=== PATIENT | male | born 1955 | race Caucasian/White ===

== ENCOUNTER 2017-08-22 20:37 | Inpatient (IN) | payer OTHER ==
[~2017-08-22] VITALS: Ht 182.9 cm; Wt 78.8 kg
[2017-08-22 20:51] VITALS: BP 142/85; PULSE 92; RESP 26; TEMP 96.7; O2SAT 100
[2017-08-22] MEDS ORDERED: ONDANSETRON HCL 4 MG/2 ML VIAL IV PUSH ONE (21:00)
[2017-08-22] MEDS ORDERED: SODIUM CHLORIDE 0.9% FLUSH 10 ML FLUSH IV FLUSH PRN ×2 (21:00→23:00)
[2017-08-22] MEDS ORDERED: MORPHINE SULFATE 4 MG/ML INJ IV PUSH ONE (21:00)
[2017-08-22] MEDS ORDERED: ceFAZolin 2 GM PREMIX 50 ML IV ONE (21:00)
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
[2017-08-22 22:00] VITALS: BP 140/79; PULSE 101; RESP 24; O2SAT 98
[2017-08-22] MEDS ORDERED: GENTAMICIN INJ 80 MG in SODIUM CHLORIDE 0.9% INJ 100 ML IV SCH (22:00)
[2017-08-22] MEDS ORDERED: LIDOCAINE HCL 1% 30 ML VIAL INFIL ONE (22:00)
[2017-08-22 22:21] LABS: AUTOMATED NEUTROPHIL # 12.5 TH/MM3 (1.8-7.7); BASOPHIL # 0.1 TH/MM3 (0-0.2); BASOPHIL % 0.4 % (0.0-2.0); EOSINOPHIL % 0.3 % (0.0-4.0); HEMATOCRIT 32.2 % (39.0-51.0); HEMO FLAGS DIFF FINAL; LYMPH % 5.8 % (9.0-44.0); LYMPHOCYTE # 0.8 TH/MM3 (1.0-4.8); MEAN CELL VOLUME 75.8 FL (80.0-100.0); MEAN CORPUSCULAR HEMOGLOBIN 24.4 PG (27.0-34.0); MEAN CORPUSCULAR HGB CONC 32.2 % (32.0-36.0); NEUT % 87.5 % (16.0-70.0); PLATELET COUNT 339 TH/MM3 (150-450); RED BLOOD COUNT 4.25 MIL/MM3 (4.50-5.90); RED CELL DISTRIBUTION WIDTH 17.5 % (11.6-17.2); WHITE BLOOD COUNT 14.2 TH/MM3 (4.0-11.0)
[2017-08-22 22:30] LABS: APTT (PATIENT) 22.2 SEC (24.3-30.1); PROTHROMBIN TIME - PATIENT 10.2 SEC (9.8-11.6)
[2017-08-22] MEDS ORDERED: HYDROmorphone HCL PF 2 MG/ML VIAL IV PUSH ONE (22:30)
[2017-08-22 22:42] LABS: BICARBONATE 18.3 MEQ/L (21.0-32.0); POTASSIUM 3.6 MEQ/L (3.5-5.1)
[2017-08-22 23:00] VITALS: BP 138/78; PULSE 92; RESP 24; O2SAT 93
[2017-08-22] MEDS ORDERED: HYDROmorphone HCL PF 1 MG/ML VIAL IV PUSH PRN (23:00)
[2017-08-22] MEDS ORDERED: LACTULOSE SYRUP 20 GM/30 ML CUP PO PRN (23:00)
[2017-08-22] MEDS ORDERED: BISACODYL 10 MG SUPP RECTAL PRN (23:00)
[2017-08-22] MEDS ORDERED: ONDANSETRON HCL 4 MG/2 ML VIAL IVP PRN (23:00)
[2017-08-22] MEDS ORDERED: NALOXONE HCL 0.4 MG/ML AMP IV PUSH PRN (23:00)
[2017-08-22] MEDS ORDERED: MAGNESIUM HYDROXIDE SUSP 30 ML CUP PO PRN (23:00)
[2017-08-22] MEDS ORDERED: SENNOSIDES 8.6 MG TAB PO PRN (23:00)
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
[2017-08-23] VITALS: BP 132/72; PULSE 100; RESP 20; O2SAT 99
[2017-08-23] MEDS: SODIUM CHLOR 0.9% 1000 ML INJ 1,000 ML IV SCH ×3 (01:42→18:56)
[2017-08-23 01:43] VITALS: BP 151/79; PULSE 84; RESP 18; TEMP 96.4; O2SAT 95
[2017-08-23] MEDS ORDERED: LACTATED RINGER'S 1000 ML IV PRN (02:30)
[2017-08-23] MEDS ORDERED: POVIDONE IODINE 5% (ANTISEPSIS KIT) 4 APPLICATIONS EACH NARE PRN (02:30)
[2017-08-23] MEDS ORDERED: SODIUM CHLORID 0.9% 500 ML IV PRN (02:30)
[2017-08-23] MEDS ORDERED: METOPROLOL TARTRATE 25 MG TAB PO PRN (02:30)
[2017-08-23] MEDS ORDERED: CHLORHEXIDINE GLUCONATE 2 % 1 PACK (2 CLOTHS) TOPICAL PRN (02:30)
[2017-08-23 03:27] VITALS: BP 111/62; PULSE 88; RESP 18; TEMP 96.6; O2SAT 96
[2017-08-23] MEDS ORDERED: ceFAZolin 2 GM PREMIX 50 ML IV SCH (06:00)
[2017-08-23] MEDS ORDERED: GENTAMICIN SULFATE 80 MG/2 ML VIAL ONE ×2 (06:58→07:30)
[2017-08-23 07:05] LABS: AUTOMATED NEUTROPHIL # 3.9 TH/MM3 (1.8-7.7); BASOPHIL % 0.3 % (0.0-2.0); EOSINOPHIL % 0.1 % (0.0-4.0); HEMATOCRIT 27.2 % (39.0-51.0); HEMO FLAGS DIFF FINAL; LYMPH % 11.1 % (9.0-44.0); LYMPHOCYTE # 0.6 TH/MM3 (1.0-4.8); MEAN CORPUSCULAR HEMOGLOBIN 25.5 PG (27.0-34.0); MEAN CORPUSCULAR HGB CONC 33.5 % (32.0-36.0); MONO % 12.8 % (0.0-8.0); NEUT % 75.7 % (16.0-70.0); PLATELET COUNT 276 TH/MM3 (150-450); RED BLOOD COUNT 3.58 MIL/MM3 (4.50-5.90); RED CELL DISTRIBUTION WIDTH 17.5 % (11.6-17.2); WHITE BLOOD COUNT 5.1 TH/MM3 (4.0-11.0)
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
[2017-08-23 07:52] LABS: BICARBONATE 23.5 MEQ/L (21.0-32.0); POTASSIUM 4.9 MEQ/L (3.5-5.1)
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
[2017-08-23] MEDS ORDERED: diphenhydrAMINE HCL 25 MG CAP PO PRN (08:30)
[2017-08-23] MEDS ORDERED: Post-op Orders (for Pharmacy) XX ONE (08:30)
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
[2017-08-23] MEDS ORDERED: BACITRACIN TOP OINT 15 GM TUBE ONE (08:35)
[2017-08-23] MEDS: SODIUM CHLORIDE 0.9% FLUSH 10 ML FLUSH IV FLUSH SCH ×2 (09:00→20:35)
[2017-08-23] MEDS: LACTATED RINGER'S 1000 ML INJ 1,000 ML IV SCH ×2 (09:00→20:36)
[2017-08-23] MEDS: DOCUSATE SODIUM 50 MG/SENNA 8.6 MG TAB PO SCH ×2 (09:00→20:40)
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
[2017-08-23] MEDS ORDERED: *morphine SULFATE 8 MG/ML PERIprocedure ONLY ONE ×2 (09:16→09:23)
[2017-08-23] MEDS ORDERED: KETOROLAC TROMETHAMINE 30 MG/ML (IVP) VIAL ONE (09:23)
--- NOTE | 2017-08-23 09:35 | RADRPT ---
EXAM DATE/TIME: 08/23/2017 08:18 [facility] COMPARISON: KNEE RIGHT LTD (1 OR 2 VWS), August 22, 2017, 21:07. INDICATIONS : Closed reduction external fixation right knee. MEDICAL HISTORY : None. SURGICAL HISTORY : None. ENCOUNTER: Initial ACUITY: 1 day PAIN SCORE: Non-responsive. LOCATION: Right Knee CONCLUSION: Fluoroscopic images of tibial fracture. Improved alignment. Godwin Fowler MD on August 23, 2017 at 9:33 Board Certified Radiologist. This report was verified electronically.
[2017-08-23] MEDS ORDERED: DO NOT ADM ANY ANTICOAGULANT DRUGS PRN (10:00)
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
[2017-08-23 12:00] VITALS: BP 101/53; PULSE 88; RESP 18; TEMP 97.2; O2SAT 98
[2017-08-23] MEDS ORDERED: PROPOFOL 200 MG/20 ML AMP IV ONE (12:00)
[2017-08-23] MEDS ORDERED: ONDANSETRON HCL 4 MG/2 ML VIAL IV PUSH ONE (12:00)
[2017-08-23] MEDS ORDERED: LIDOCAINE HCL 1% PF 5 ML SYRINGE OTHER ONE (12:00)
[2017-08-23] MEDS ORDERED: DEXAMETHASONE SOD PHOS 4 MG/ML VIAL IV ONE (12:00)
[2017-08-23] MEDS ORDERED: MIDAZOLAM HCL 2 MG/2 ML VIAL IV ONE (12:00)
[2017-08-23] MEDS ORDERED: PHENYLEPH/NS 1000 MCG/10 ML SYR IV ONE (12:00)
[2017-08-23] MEDS: ceFAZolin 2 GM PREMIX 50 ML IV SCH ×2 (12:36→20:40)
[2017-08-23] MEDS: GENTAMICIN 80 MG PREMIX 100 ML IV SCH ×2 (12:37→19:02)
[2017-08-23] MEDS: KETOROLAC TROMETHAMINE 30 MG/ML (IVP) VIAL IVP SCH ×2 (14:00→20:40)
[2017-08-23 16:00] VITALS: BP 110/68; PULSE 99; RESP 18; TEMP 99; O2SAT 97
[2017-08-23 20:35] VITALS: BP 146/70; PULSE 103; RESP 18; TEMP 98.1; O2SAT 98
[2017-08-24] VITALS (10 sets, daily range): BP systolic 106–135; BP diastolic 54–75; PULSE 73–106; RESP 16–18; TEMP 97.3–99.3; O2SAT 95–99
[2017-08-24] MEDS: GENTAMICIN 80 MG PREMIX 100 ML IV SCH ×3 (01:19→19:35)
[2017-08-24] MEDS: ceFAZolin 2 GM PREMIX 50 ML IV SCH ×3 (02:32→20:26)
[2017-08-24] MEDS: SODIUM CHLOR 0.9% 1000 ML INJ 1,000 ML IV SCH ×2 (02:40→14:56)
[2017-08-24] MEDS: KETOROLAC TROMETHAMINE 30 MG/ML (IVP) VIAL IVP SCH ×3 (05:35→22:16)
--- NOTE | 2017-08-24 07:37 | PD.ORT.PN ---
Subjective Subjective Remarks Resting comfortably with no new complaints Objective Vitals Vital Signs Date Time Temp Pulse Resp B/P (MAP) Pulse Ox O2 Delivery O2 Flow Rate FiO2 08/24/17 04:00 98.8 102 18 116/63 (80) 97 08/24/17 00:30 98.5 102 18 135/75 (95) 97 08/23/17 20:35 98.1 103 18 146/70 (95) 98 08/23/17 16:00 99.0 99 18 110/68 (82) 97 08/23/17 12:00 97.2 88 18 101/53 (69) 98 08/23/17 09:45 98.4 81 15 135/79 (97) 100 Nasal Cannula 2 08/23/17 09:45 80 15 131/81 (98) 100 Nasal Cannula 2 08/23/17 09:30 71 15 155/70 (98) 100 Nasal Cannula 2 08/23/17 09:15 79 15 130/71 (90) 100 Nasal Cannula 2 08/23/17 08:59 98.1 72 15 137/64 (88) 95 Nasal Cannula 2 I/O 08/23/17 08/23/17 08/23/17 08/24/17 08/24/17 08/24/17 07:00 15:00 23:00 07:00 15:00 23:00 Intake Total 100 ml 1780 ml 480 ml 530 ml Output Total 700 ml Balance 100 ml 1080 ml 480 ml 530 ml Intake Oral 0 ml 480 ml 480 ml 480 ml IV Total 100 ml 100 ml 50 ml Other 1200 ml Output Urine Total 650 ml Estimated Blood Loss 50 ml # Voids 1 2 3 # Bowel Movements 0 0 0 0 Result Diagram: 08/23/1762708/23/17627 Imaging Last 24 hours Impressions Tibia/Fibula X-Ray 08/22/172047 Signed Impressions: Service Date/Time: Tuesday, August 22, 2017 21:08 - CONCLUSION: Severely comminuted fracture of the proximal tibia and fracturing of the distal femur. Raúl May MD Knee X-Ray 08/22/172047 Signed Impressions: Service Date/Time: Tuesday, August 22, 2017 21:07 - CONCLUSION: Severely comminuted distal tibial fractures and fractures of the distal femur at the condyles. This possible fracture of the proximal fibula. There is air in the soft tissues and in the knee joint space. Raúl May MD Femur X-Ray 08/22/172047 Signed Impressions: Service Date/Time: Tuesday, August 22, 2017 21:04 - CONCLUSION: Fracturing at the femoral condyles and tibial plateau. Raúl May MD Objective Remarks Right lower extremity: External fixation in place. Clean dry dressings intact. Swelling a +2. Intact sensation distally with active dorsiflexion plantar flexion foot Assessment & Plan Assessment and Plan Right open distal femur and tibia plateau status post irrigation debridement with wound closure and external fixation POD 1 Nonweightbearing right lower extremity Daily dressing changes beginning POD 2 with Xeroform 4 x 4's ABDs and light Beau wrap Pin care twice a day Elevation and ice Plan for further surgery with swelling and traumatic laceration has improved Lovenox Incentive spirometry Bayron Sung Jr. Aug 24, 2017 07:37
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
[2017-08-24] MEDS: ENOXAPARIN SODIUM 40 MG/0.4 ML SYRINGE SQ SCH (08:57)
[2017-08-24] MEDS: DOCUSATE SODIUM 50 MG/SENNA 8.6 MG TAB PO SCH ×2 (08:57→20:26)
[2017-08-24] MEDS: SODIUM CHLORIDE 0.9% FLUSH 10 ML FLUSH IV FLUSH SCH ×2 (09:00→20:43)
[2017-08-24 10:40] LABS: REVIEW FLAG FINAL
[2017-08-24 10:44] LABS: HEMATOCRIT 19.6 % (39.0-51.0)
[2017-08-24] MEDS ORDERED: FUROSEMIDE 20 MG/2 ML VIAL IV PUSH SCH (16:15)
[2017-08-24] MEDS ORDERED: SODIUM CHLOR 0.9% 250 ML INJ 250 ML IV ONE (16:15)
[2017-08-24] MEDS: ACETAMINOPHEN 325 MG TAB PO PRN (22:39)
[2017-08-24] MEDS: diphenhydrAMINE HCL 25 MG CAP PO PRN (22:39)
[2017-08-25] VITALS (8 sets, daily range): BP systolic 114–173; BP diastolic 66–86; PULSE 59–97; RESP 16–18; TEMP 96–97.9; O2SAT 95–100
[2017-08-25] MEDS: GENTAMICIN 80 MG PREMIX 100 ML IV SCH (03:01)
[2017-08-25] MEDS: ceFAZolin 2 GM PREMIX 50 ML IV SCH ×3 (03:01→21:26)
[2017-08-25] MEDS: ACETAMINOPHEN 325 MG TAB PO PRN (04:14)
[2017-08-25] MEDS: diphenhydrAMINE HCL 25 MG CAP PO PRN (04:14)
[2017-08-25] MEDS: KETOROLAC TROMETHAMINE 30 MG/ML (IVP) VIAL IVP SCH (04:15)
--- NOTE | 2017-08-25 08:43 | PD.ORT.PN ---
Subjective Subjective Remarks Resting comfortably with no new complaints Objective Vitals Vital Signs Date Time Temp Pulse Resp B/P (MAP) Pulse Ox O2 Delivery O2 Flow Rate FiO2 08/25/17 05:21 97.9 68 16 125/70 99 08/25/17 05:02 97.9 67 18 120/72 08/25/17 04:56 97.9 77 18 120/72 (88) 95 08/25/17 02:42 97.9 76 16 114/68 99 08/24/17 23:44 99.3 73 18 115/67 99 08/24/17 23:25 99.0 76 18 116/64 99 08/24/17 23:05 99.0 76 18 116/64 (81) 99 08/24/17 22:21 99.0 89 18 116/63 (80) 99 08/24/17 20:39 97.3 86 17 109/58 (75) 95 08/24/17 16:00 97.6 87 16 119/62 (81) 96 08/24/17 12:00 98.0 106 16 110/54 (72) 97 I/O 08/24/17 08/24/17 08/24/17 08/25/17 08/25/17 08/25/17 07:00 15:00 23:00 07:00 15:00 23:00 Intake Total 530 ml 1080 ml 1950 ml 410 ml Output Total 1825 ml Balance 530 ml 1080 ml 125 ml 410 ml Intake Oral 480 ml 1080 ml 1440 ml IV Total 50 ml Packed Cells 400 ml 400 ml Blood Product IV Normal Saline Flush 110 ml 10 ml Output Urine Total 1825 ml # Voids 3 6 # Bowel Movements 0 0 0 Result Diagram: 08/24/17 0945 08/23/17 0628 Imaging Last 24 hours Impressions Tibia/Fibula X-Ray 08/22/172047 Signed Impressions: Service Date/Time: Tuesday, August 22, 2017 21:08 - CONCLUSION: Severely comminuted fracture of the proximal tibia and fracturing of the distal femur. Raúl May MD Knee X-Ray 08/22/172047 Signed Impressions: Service Date/Time: Tuesday, August 22, 2017 21:07 - CONCLUSION: Severely comminuted distal tibial fractures and fractures of the distal femur at the condyles. This possible fracture of the proximal fibula. There is air in the soft tissues and in the knee joint space. Raúl May MD Femur X-Ray 08/22/172047 Signed Impressions: Service Date/Time: Tuesday, August 22, 2017 21:04 - CONCLUSION: Fracturing at the femoral condyles and tibial plateau. Raúl May MD Objective Remarks Right lower extremity: External fixation in place. Clean dry dressings intact. Dressings taken down and traumatic laceration well approximated and healing well. No necrosis noted. Swelling a +2. Intact sensation distally with active dorsiflexion plantar flexion foot Assessment & Plan Assessment and Plan Right open distal femur and tibia plateau status post irrigation debridement with wound closure and external fixation POD 2 Nonweightbearing right lower extremity Daily dressing changes beginning POD 2 with bacitracin and Adaptic, 4 x 4's ABDs and light Beau wrap Pin care twice a day Elevation and ice Plan for further surgery with swelling and traumatic laceration has improved Lovenox Incentive spirometry Bayron Sung Jr. Aug 25, 2017 08:43
[2017-08-25] MEDS: DOCUSATE SODIUM 50 MG/SENNA 8.6 MG TAB PO SCH ×2 (08:47→21:26)
[2017-08-25] MEDS: SODIUM CHLORIDE 0.9% FLUSH 10 ML FLUSH IV FLUSH SCH ×2 (08:48→21:27)
[2017-08-25] MEDS: ENOXAPARIN SODIUM 40 MG/0.4 ML SYRINGE SQ SCH (08:48)
[2017-08-25] MEDS: ACETAMINOPHEN/HYDROcodone 325 MG/10 MG TAB PO PRN ×2 (08:48→12:43)
[2017-08-25 09:35] LABS: HEMATOCRIT 22.5 % (39.0-51.0)
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
[2017-08-25] MEDS: SODIUM CHLOR 0.9% 1000 ML INJ 1,000 ML IV SCH (14:56)
[2017-08-26] VITALS: BP 137/77; PULSE 93; RESP 20; TEMP 98; O2SAT 98
[2017-08-26 02:47] LABS: HEMATOCRIT 23.5 % (39.0-51.0)
[2017-08-26 04:00] VITALS: BP 140/84; PULSE 87; RESP 20; TEMP 97.2; O2SAT 97
[2017-08-26] MEDS: ceFAZolin 2 GM PREMIX 50 ML IV SCH (04:33)
--- NOTE | 2017-08-26 07:36 | PD.ORT.PN ---
Subjective Subjective Remarks POD 3 s/p application of exfix right distal femur and proximal tibia fxs doing well. no changes. Objective Vitals Vital Signs Date Time Temp Pulse Resp B/P (MAP) Pulse Ox O2 Delivery O2 Flow Rate FiO2 08/26/17 04:00 97.2 87 20 140/84 (102) 97 08/26/17 00:00 98.0 93 20 137/77 (97) 98 08/25/17 20:15 97.4 97 17 122/80 (94) 100 08/25/17 16:00 96.6 78 18 173/86 (115) 99 08/25/17 12:00 96.0 88 18 130/66 (87) 100 08/25/17 08:00 96.8 59 18 114/72 (86) 96 I/O 08/25/17 08/25/17 08/25/17 08/26/17 08/26/17 08/26/17 06:59 14:59 22:59 06:59 14:59 22:59 Intake Total 1950 ml 890 ml 530 ml 2290 ml Output Total 1825 ml 700 ml 1500 ml 5000 ml Balance 125 ml 190 ml -970 ml -2710 ml Intake Oral 1440 ml 480 ml 480 ml 2240 ml IV Total 50 ml 50 ml Packed Cells 400 ml 400 ml Blood Product IV Normal Saline Flush 110 ml 10 ml Output Urine Total 1825 ml 700 ml 1500 ml 5000 ml # Bowel Movements 0 0 0 Result Diagram: 08/26/17 0232 08/23/17 0628 Imaging Last 24 hours Impressions Tibia/Fibula X-Ray 08/22/172047 Signed Impressions: Service Date/Time: Tuesday, August 22, 2017 21:08 - CONCLUSION: Severely comminuted fracture of the proximal tibia and fracturing of the distal femur. Raúl May MD Knee X-Ray 08/22/172047 Signed Impressions: Service Date/Time: Tuesday, August 22, 2017 21:07 - CONCLUSION: Severely comminuted distal tibial fractures and fractures of the distal femur at the condyles. This possible fracture of the proximal fibula. There is air in the soft tissues and in the knee joint space. Raúl May MD Femur X-Ray 08/22/172047 Signed Impressions: Service Date/Time: Tuesday, August 22, 2017 21:04 - CONCLUSION: Fracturing at the femoral condyles and tibial plateau. Raúl May MD Objective Remarks Right lower extremity: External fixation in place. Clean dry dressings intact. Dressings taken down and traumatic laceration well approximated and healing well. No necrosis noted. Swelling a +2. Intact sensation distally with active dorsiflexion plantar flexion foot Assessment & Plan Assessment and Plan 1) Right open distal femur and tibia plateau status post irrigation debridement with wound closure and external fixation POD 3 Nonweightbearing right lower extremity Daily dressing changes beginning with bacitracin and Adaptic, 4 x 4's ABDs and light Beau wrap Pin care twice a day Elevation and ice Plan for further surgery with swelling and traumatic laceration has improved Lovenox Incentive spirometry do not anticipate surgery until next week at earliest Samson Verma/First [facility] CONNELL Aug 26, 2017 07:36
[2017-08-26 08:00] VITALS: BP 130/88; PULSE 83; RESP 16; TEMP 97.6; O2SAT 98
[2017-08-26] MEDS: ENOXAPARIN SODIUM 40 MG/0.4 ML SYRINGE SQ SCH (08:40)
[2017-08-26] MEDS: SODIUM CHLORIDE 0.9% FLUSH 10 ML FLUSH IV FLUSH SCH ×2 (08:40→22:28)
[2017-08-26] MEDS: DOCUSATE SODIUM 50 MG/SENNA 8.6 MG TAB PO SCH ×2 (08:40→21:00)
[2017-08-26] MEDS: BACITRACIN TOP OINT 15 GM TUBE TOPICAL SCH (09:00)
[2017-08-26 12:00] VITALS: BP 129/69; PULSE 93; RESP 16; TEMP 97.4; O2SAT 95
[2017-08-26] MEDS: IRON SUCROSE INJ 100 MG in SODIUM CHLORIDE 0.9% INJ 100 ML IV SCH (12:00)
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
[2017-08-26 16:00] VITALS: BP 157/79; PULSE 70; RESP 16; TEMP 97.8; O2SAT 98
[2017-08-26] MEDS: ACETAMINOPHEN/HYDROcodone 325 MG/10 MG TAB PO PRN (16:37)
[2017-08-26] MEDS: SODIUM CHLOR 0.9% 1000 ML INJ 1,000 ML IV SCH (16:37)
[2017-08-26 21:37] VITALS: BP 128/72; PULSE 91; RESP 18; TEMP 98.7; O2SAT 98
[2017-08-27] VITALS: BP 136/75; PULSE 82; RESP 20; TEMP 97; O2SAT 96
[2017-08-27] MEDS: DOCUSATE SODIUM 50 MG/SENNA 8.6 MG TAB PO SCH ×2 (07:42→23:07)
[2017-08-27] MEDS: ENOXAPARIN SODIUM 40 MG/0.4 ML SYRINGE SQ SCH (07:42)
[2017-08-27 08:00] VITALS: BP 142/83; PULSE 74; RESP 16; TEMP 96.4; O2SAT 99
[2017-08-27] MEDS: SODIUM CHLORIDE 0.9% FLUSH 10 ML FLUSH IV FLUSH SCH ×2 (09:00→23:07)
[2017-08-27] MEDS: BACITRACIN TOP OINT 15 GM TUBE TOPICAL SCH (09:00)
--- NOTE | 2017-08-27 09:17 | PD.ORT.PN ---
Subjective Subjective Remarks Resting comfortably with no new complaints Objective Vitals Vital Signs Date Time Temp Pulse Resp B/P (MAP) Pulse Ox O2 Delivery O2 Flow Rate FiO2 08/27/17 00:00 97.0 82 20 136/75 (95) 96 08/26/17 21:37 98.7 91 18 128/72 (90) 98 08/26/17 19:18 Room Air 08/26/17 16:00 97.8 70 16 157/79 (105) 98 08/26/17 12:00 97.4 93 16 129/69 (89) 95 I/O 08/26/17 08/26/17 08/26/17 08/27/17 08/27/17 08/27/17 07:00 15:00 23:00 07:00 15:00 23:00 Intake Total 2290 ml 940 ml 1000 ml Output Total 5000 ml 3000 ml 2000 ml Balance -2710 ml -2060 ml -1000 ml Intake Oral 2240 ml 940 ml 1000 ml IV Total 50 ml Output Urine Total 5000 ml 3000 ml 2000 ml # Voids 2 # Bowel Movements 0 0 0 Result Diagram: 08/27/17 0634 08/23/17 0628 Imaging Last 24 hours Impressions Tibia/Fibula X-Ray 08/22/172047 Signed Impressions: Service Date/Time: Tuesday, August 22, 2017 21:08 - CONCLUSION: Severely comminuted fracture of the proximal tibia and fracturing of the distal femur. Raúl May MD Knee X-Ray 08/22/172047 Signed Impressions: Service Date/Time: Tuesday, August 22, 2017 21:07 - CONCLUSION: Severely comminuted distal tibial fractures and fractures of the distal femur at the condyles. This possible fracture of the proximal fibula. There is air in the soft tissues and in the knee joint space. Raúl May MD Femur X-Ray 08/22/172047 Signed Impressions: Service Date/Time: Tuesday, August 22, 2017 21:04 - CONCLUSION: Fracturing at the femoral condyles and tibial plateau. Raúl May MD Objective Remarks Right lower extremity: External fixation in place. Clean dry dressings intact. Dressings taken down and traumatic laceration well approximated and healing well. No necrosis noted. Swelling a +2. Intact sensation distally with active dorsiflexion plantar flexion foot Assessment & Plan Assessment and Plan 1) Right open distal femur and tibia plateau status post irrigation debridement with wound closure and external fixation POD 4 Nonweightbearing right lower extremity Daily dressing changes beginning with bacitracin and Adaptic, 4 x 4's ABDs and light Beau wrap Pin care twice a day Elevation and ice Plan for further surgery with swelling and traumatic laceration has improved - next week Lovenox Incentive spirometry Bayron Sung Jr. Aug 27, 2017 09:17
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
[2017-08-27 12:00] VITALS: BP 138/85; PULSE 93; RESP 16; TEMP 97; O2SAT 97
[2017-08-27] MEDS: IRON SUCROSE INJ 100 MG in SODIUM CHLORIDE 0.9% INJ 100 ML IV SCH (13:08)
[2017-08-27] MEDS: SODIUM CHLOR 0.9% 1000 ML INJ 1,000 ML IV SCH (14:56)
[2017-08-27 16:00] VITALS: BP 133/79; PULSE 72; RESP 16; TEMP 97.1; O2SAT 98
[2017-08-27] MEDS: ACETAMINOPHEN/HYDROcodone 325 MG/10 MG TAB PO PRN (16:48)
[2017-08-27 20:00] VITALS: BP 154/88; PULSE 76; RESP 18; TEMP 97.9; O2SAT 99
[2017-08-28] VITALS: BP 139/82; PULSE 79; RESP 17; TEMP 96.3; O2SAT 98
--- NOTE | 2017-08-28 07:41 | PD.ORT.PN ---
Subjective Subjective Remarks Resting comfortably with no new complaints Objective Vitals Vital Signs Date Time Temp Pulse Resp B/P (MAP) Pulse Ox O2 Delivery O2 Flow Rate FiO2 08/28/17 00:00 96.3 79 17 139/82 (101) 98 08/27/17 20:00 97.9 76 18 154/88 (110) 99 08/27/17 19:07 Room Air 08/27/17 16:00 97.1 72 16 133/79 (97) 98 08/27/17 12:00 97.0 93 16 138/85 (102) 97 08/27/17 08:00 96.4 74 16 142/83 (102) 99 I/O 08/27/17 08/27/17 08/27/17 08/28/17 08/28/17 08/28/17 07:00 15:00 23:00 07:00 15:00 23:00 Intake Total 1000 ml 1660 ml 720 ml Output Total 2000 ml 1500 ml 1100 ml Balance -1000 ml 160 ml -380 ml Intake Oral 1000 ml 1660 ml 720 ml Output Urine Total 2000 ml 1500 ml 1100 ml # Voids 4 # Bowel Movements 0 Result Diagram: 08/27/17 0634 Imaging Last 24 hours Impressions Tibia/Fibula X-Ray 08/22/172047 Signed Impressions: Service Date/Time: Tuesday, August 22, 2017 21:08 - CONCLUSION: Severely comminuted fracture of the proximal tibia and fracturing of the distal femur. Raúl May MD Knee X-Ray 08/22/172047 Signed Impressions: Service Date/Time: Tuesday, August 22, 2017 21:07 - CONCLUSION: Severely comminuted distal tibial fractures and fractures of the distal femur at the condyles. This possible fracture of the proximal fibula. There is air in the soft tissues and in the knee joint space. Raúl May MD Femur X-Ray 08/22/172047 Signed Impressions: Service Date/Time: Tuesday, August 22, 2017 21:04 - CONCLUSION: Fracturing at the femoral condyles and tibial plateau. Raúl May MD Objective Remarks Right lower extremity: External fixation in place. Clean dry dressings intact. Dressings taken down and traumatic laceration well approximated and healing well. No necrosis noted. Swelling a +2. Intact sensation distally with active dorsiflexion plantar flexion foot Assessment & Plan Assessment and Plan 1) Right open distal femur and tibia plateau status post irrigation debridement with wound closure and external fixation POD 5 Nonweightbearing right lower extremity Daily dressing changes beginning with bacitracin and Adaptic, 4 x 4's ABDs and light Beau wrap Pin care twice a day Elevation and ice Keep leg straight to avoid pressure of his knee touching the external fixators Plan for further surgery with swelling and traumatic laceration has improved - next week Lovenox Incentive spirometry Bayron Sung Jr. Aug 28, 2017 07:41
[2017-08-28 08:00] VITALS: BP 126/69; PULSE 76; RESP 18; TEMP 96.8; O2SAT 99
[2017-08-28] MEDS: ENOXAPARIN SODIUM 40 MG/0.4 ML SYRINGE SQ SCH (09:00)
[2017-08-28] MEDS: SODIUM CHLORIDE 0.9% FLUSH 10 ML FLUSH IV FLUSH SCH ×2 (09:00→22:24)
[2017-08-28] MEDS: DOCUSATE SODIUM 50 MG/SENNA 8.6 MG TAB PO SCH ×2 (09:00→21:00)
[2017-08-28] MEDS: BACITRACIN TOP OINT 15 GM TUBE TOPICAL SCH (09:05)
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
[2017-08-28 12:00] VITALS: BP 116/65; PULSE 85; RESP 18; TEMP 95.9; O2SAT 97
[2017-08-28] MEDS: IRON SUCROSE INJ 100 MG in SODIUM CHLORIDE 0.9% INJ 100 ML IV SCH (12:37)
[2017-08-28] MEDS: SODIUM CHLOR 0.9% 1000 ML INJ 1,000 ML IV SCH (14:56)
[2017-08-28 16:00] VITALS: BP 131/75; PULSE 76; RESP 18; TEMP 97.3; O2SAT 100
[2017-08-28 20:40] VITALS: BP 124/72; PULSE 89; RESP 18; TEMP 97.8; O2SAT 97
[2017-08-29 00:12] VITALS: BP 103/67; PULSE 90; RESP 18; TEMP 98.4; O2SAT 97
[2017-08-29 08:00] VITALS: BP 131/74; PULSE 85; RESP 18; TEMP 96.6; O2SAT 98
[2017-08-29] MEDS: DOCUSATE SODIUM 50 MG/SENNA 8.6 MG TAB PO SCH ×2 (09:00→19:56)
[2017-08-29] MEDS: ENOXAPARIN SODIUM 40 MG/0.4 ML SYRINGE SQ SCH (09:32)
[2017-08-29] MEDS: SODIUM CHLORIDE 0.9% FLUSH 10 ML FLUSH IV FLUSH SCH ×2 (09:32→19:56)
[2017-08-29] MEDS: BACITRACIN TOP OINT 15 GM TUBE TOPICAL SCH (09:33)
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
[2017-08-29 11:57] VITALS: BP 123/70; PULSE 93; RESP 18; TEMP 97.8; O2SAT 98
[2017-08-29] MEDS: SODIUM CHLOR 0.9% 1000 ML INJ 1,000 ML IV SCH (14:56)
[2017-08-29 16:00] VITALS: BP 129/73; PULSE 80; RESP 18; TEMP 96.1; O2SAT 99
[2017-08-29 20:50] VITALS: BP 142/75; PULSE 84; RESP 18; TEMP 97.2; O2SAT 100
[2017-08-30 00:07] VITALS: BP 123/75; PULSE 80; RESP 18; TEMP 97; O2SAT 100
[2017-08-30 05:36] LABS: AUTOMATED NEUTROPHIL # 5.6 TH/MM3 (1.8-7.7); BASOPHIL # 0.1 TH/MM3 (0-0.2); BASOPHIL % 0.9 % (0.0-2.0); EOSINOPHIL # 0.3 TH/MM3 (0-0.4); EOSINOPHIL % 3.8 % (0.0-4.0); HEMATOCRIT 26.1 % (39.0-51.0); HEMO FLAGS DIFF FINAL; LYMPH % 15.5 % (9.0-44.0); LYMPHOCYTE # 1.3 TH/MM3 (1.0-4.8); MEAN CORPUSCULAR HEMOGLOBIN 27.2 PG (27.0-34.0); MEAN CORPUSCULAR HGB CONC 33.6 % (32.0-36.0); MONO % 12.1 % (0.0-8.0); NEUT % 67.7 % (16.0-70.0); PLATELET COUNT 390 TH/MM3 (150-450); RED BLOOD COUNT 3.22 MIL/MM3 (4.50-5.90); RED CELL DISTRIBUTION WIDTH 19.5 % (11.6-17.2); WHITE BLOOD COUNT 8.3 TH/MM3 (4.0-11.0)
[2017-08-30 06:04] LABS: BICARBONATE 21.6 MEQ/L (21.0-32.0); POTASSIUM 4.1 MEQ/L (3.5-5.1)
--- NOTE | 2017-08-30 06:49 | PD.ORT.PN ---
Subjective Subjective Remarks Resting comfortably with no new complaints Objective Vitals Vital Signs Date Time Temp Pulse Resp B/P (MAP) Pulse Ox O2 Delivery O2 Flow Rate FiO2 08/30/17 00:07 97.0 80 18 123/75 (91) 100 08/29/17 20:50 97.2 84 18 142/75 (97) 100 08/29/17 20:00 Room Air 08/29/17 16:00 96.1 80 18 129/73 (91) 99 08/29/17 11:57 97.8 93 18 123/70 (87) 98 08/29/17 08:00 96.6 85 18 131/74 (93) 98 I/O 08/29/17 08/29/17 08/29/17 08/30/17 08/30/17 08/30/17 07:00 15:00 23:00 07:00 15:00 23:00 Intake Total 480 ml 960 ml 480 ml Output Total 1900 ml 1000 ml Balance -1420 ml 960 ml -520 ml Intake Oral 480 ml 960 ml 480 ml Output Urine Total 1900 ml 1000 ml # Voids 6 # Bowel Movements 0 0 0 Result Diagram: 08/30/17 0434 08/30/17 0434 Imaging Last 24 hours Impressions Tibia/Fibula X-Ray 08/22/172047 Signed Impressions: Service Date/Time: Tuesday, August 22, 2017 21:08 - CONCLUSION: Severely comminuted fracture of the proximal tibia and fracturing of the distal femur. Raúl May MD Knee X-Ray 08/22/172047 Signed Impressions: Service Date/Time: Tuesday, August 22, 2017 21:07 - CONCLUSION: Severely comminuted distal tibial fractures and fractures of the distal femur at the condyles. This possible fracture of the proximal fibula. There is air in the soft tissues and in the knee joint space. Raúl May MD Femur X-Ray [id number]/22/172047 Signed Impressions: Service Date/Time: Tuesday, August 22, 2017 21:04 - CONCLUSION: Fracturing at the femoral condyles and tibial plateau. Raúl May MD Objective Remarks Right lower extremity: External fixation in place. Clean dry dressings intact. Dressings taken down and traumatic laceration well approximated and healing with some necrosis over the lateral incision line and also medially distally to the laceration over the traumatized skin. No necrosis noted. Swelling a +2. Intact sensation distally with active dorsiflexion plantar flexion foot Assessment & Plan Assessment and Plan 1) Right open distal femur and tibia plateau status post irrigation debridement with wound closure and external fixation POD 6 Nonweightbearing right lower extremity Daily dressing changes beginning with bacitracin and Adaptic, 4 x 4's ABDs and light Beau wrap Pin care twice a day Elevation and ice Keep leg straight to avoid pressure of his knee touching the external fixators Nothing by mouth after midnight Hold Lovenox Incentive spirometry Bayron Sung Jr. Aug 30, 2017 06:48
[2017-08-30 08:00] VITALS: BP 133/77; PULSE 72; RESP 18; TEMP 98.4; O2SAT 78
[2017-08-30] MEDS: SODIUM CHLORIDE 0.9% FLUSH 10 ML FLUSH IV FLUSH SCH ×2 (09:00→21:41)
[2017-08-30] MEDS: BACITRACIN TOP OINT 15 GM TUBE TOPICAL SCH (09:00)
[2017-08-30] MEDS: ENOXAPARIN SODIUM 40 MG/0.4 ML SYRINGE SQ SCH (09:46)
[2017-08-30] MEDS: DOCUSATE SODIUM 50 MG/SENNA 8.6 MG TAB PO SCH ×2 (09:46→21:00)
[2017-08-30 12:00] VITALS: BP 130/75; PULSE 96; RESP 16; TEMP 97.1; O2SAT 98
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
[2017-08-30] MEDS: SODIUM CHLOR 0.9% 1000 ML INJ 1,000 ML IV SCH (14:56)
[2017-08-30 16:00] VITALS: BP 142/78; PULSE 94; RESP 16; TEMP 96.4; O2SAT 100
[2017-08-30 20:00] VITALS: BP 131/69; PULSE 86; RESP 20; TEMP 98; O2SAT 99
[2017-08-31] VITALS: BP 133/68; PULSE 89; RESP 22; TEMP 98; O2SAT 97
[2017-08-31] MEDS ORDERED: LACTATED RINGER'S 1000 ML IV PRN (00:30)
[2017-08-31] MEDS ORDERED: POVIDONE IODINE 5% (ANTISEPSIS KIT) 4 APPLICATIONS EACH NARE PRN (00:30)
[2017-08-31] MEDS ORDERED: CHLORHEXIDINE GLUCONATE 2 % 1 PACK (2 CLOTHS) TOPICAL PRN (00:30)
[2017-08-31 04:00] VITALS: BP 144/79; PULSE 85; RESP 20; TEMP 97.7; O2SAT 97
--- NOTE | 2017-08-31 06:34 | PD.ORT.PN ---
Subjective Subjective Remarks s/p application of exfix right distal femur and proximal tibia fxs doing well. no changes. Objective Vitals Vital Signs Date Time Temp Pulse Resp B/P (MAP) Pulse Ox O2 Delivery O2 Flow Rate FiO2 08/31/17 04:00 97.7 85 20 144/79 (100) 97 08/31/17 00:00 98.0 89 22 133/68 (89) 97 08/30/17 20:00 98.0 86 20 131/69 (89) 99 08/30/17 16:00 96.4 94 16 142/78 (99) 100 08/30/17 12:00 97.1 96 16 130/75 (93) 98 08/30/17 09:40 Room Air 08/30/17 08:00 98.4 72 18 133/77 (95) 78 I/O 08/30/17 08/30/17 08/30/17 08/31/17 08/31/17 08/31/17 07:00 15:00 23:00 07:00 15:00 23:00 Intake Total 960 ml 720 ml Output Total 2400 ml 2575 ml Balance -1440 ml 720 ml -2575 ml Intake Oral 960 ml 720 ml Output Urine Total 2400 ml 2575 ml # Voids 5 # Bowel Movements 0 0 Result Diagram: 08/30/17 0434 08/30/17 0434 Imaging Last 24 hours Impressions Tibia/Fibula X-Ray 08/22/172047 Signed Impressions: Service Date/Time: Tuesday, August 22, 2017 21:08 - CONCLUSION: Severely comminuted fracture of the proximal tibia and fracturing of the distal femur. Raúl May MD Knee X-Ray 08/22/172047 Signed Impressions: Service Date/Time: Tuesday, August 22, 2017 21:07 - CONCLUSION: Severely comminuted distal tibial fractures and fractures of the distal femur at the condyles. This possible fracture of the proximal fibula. There is air in the soft tissues and in the knee joint space. Raúl May MD Femur X-Ray 08/22/172047 Signed Impressions: Service Date/Time: Tuesday, August 22, 2017 21:04 - CONCLUSION: Fracturing at the femoral condyles and tibial plateau. Raúl May MD Objective Remarks Right lower extremity: External fixation in place. Clean dry dressings intact. Dressings taken down and traumatic laceration well approximated and healing with some necrosis over the lateral incision line and also medially distally to the laceration over the traumatized skin. No necrosis noted. Swelling a +2. Intact sensation distally with active dorsiflexion plantar flexion foot Assessment & Plan Assessment and Plan 1) Right open distal femur and tibia plateau status post irrigation debridement with wound closure and external fixation POD 7 Nonweightbearing right lower extremity Daily dressing changes beginning with bacitracin and Adaptic, 4 x 4's ABDs and light Beau wrap Pin care twice a day Elevation and ice Keep leg straight to avoid pressure of his knee touching the external fixators OR today for I&D and revision of exfix Samson Verma/[facility] PA Aug 31, 2017 06:34
[2017-08-31 08:00] VITALS: BP 123/69; PULSE 79; RESP 18; TEMP 96.6; O2SAT 98
[2017-08-31 08:33] LABS: APTT (PATIENT) 23.4 SEC (24.3-30.1); INTERNATIONAL NORMALIZED RATIO 0.9 RATIO; PROTHROMBIN TIME - PATIENT 9.3 SEC (9.8-11.6)
[2017-08-31 08:40] LABS: AUTOMATED NEUTROPHIL # 5.5 TH/MM3 (1.8-7.7); BASOPHIL # 0.1 TH/MM3 (0-0.2); BASOPHIL % 0.9 % (0.0-2.0); EOSINOPHIL # 0.3 TH/MM3 (0-0.4); EOSINOPHIL % 3.6 % (0.0-4.0); HEMATOCRIT 27.2 % (39.0-51.0); HEMO FLAGS DIFF FINAL; LYMPH % 15.4 % (9.0-44.0); LYMPHOCYTE # 1.2 TH/MM3 (1.0-4.8); MEAN CELL VOLUME 80.5 FL (80.0-100.0); MEAN CORPUSCULAR HEMOGLOBIN 26.8 PG (27.0-34.0); MEAN CORPUSCULAR HGB CONC 33.3 % (32.0-36.0); NEUT % 69.1 % (16.0-70.0); PLATELET COUNT 440 TH/MM3 (150-450); RED BLOOD COUNT 3.38 MIL/MM3 (4.50-5.90); RED CELL DISTRIBUTION WIDTH 19.7 % (11.6-17.2)
[2017-08-31] MEDS: DOCUSATE SODIUM 50 MG/SENNA 8.6 MG TAB PO SCH ×2 (08:44→21:57)
[2017-08-31] MEDS: SODIUM CHLORIDE 0.9% FLUSH 10 ML FLUSH IV FLUSH SCH ×2 (08:44→21:58)
[2017-08-31] MEDS: BACITRACIN TOP OINT 15 GM TUBE TOPICAL SCH (08:45)
[2017-08-31 08:53] LABS: ANION GAP 9 MEQ/L (5-15); AST (GOT) 23 U/L (15-37); BICARBONATE 23.9 MEQ/L (21.0-32.0); BLOOD UREA NITROGEN 10 MG/DL (7-18); CHLORIDE 99 MEQ/L (98-107); GLOMERULAR FILTRATION RATE 116 ML/MIN (>89); MAGNESIUM 2.3 MG/DL (1.5-2.5); SODIUM (NA) 132 MEQ/L (136-145)
[2017-08-31 08:55] LABS: ALT (GPT) 32 U/L (12-78)
[2017-08-31 09:04] LABS: ALKALINE PHOSPHATASE 65 U/L (45-117); FREE T4 1.03 NG/DL (0.76-1.46); TOTAL BILIRUBIN ADULT 0.5 MG/DL (0.2-1.0)
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
[2017-08-31 12:00] VITALS: BP 125/74; PULSE 81; RESP 16; TEMP 96.5; O2SAT 99
[2017-08-31] MEDS ORDERED: NEOSTIGMINE 5 MG/5 ML SYRINGE IV PUSH ONE (12:00)
[2017-08-31] MEDS ORDERED: ONDANSETRON HCL 4 MG/2 ML VIAL IV ONE (12:00)
[2017-08-31] MEDS ORDERED: DEXAMETHASONE SOD PHOS 4 MG/ML VIAL IV ONE (12:00)
[2017-08-31] MEDS ORDERED: GLYCOPYRROLATE 1 MG/5 ML SYRINGE IV PUSH ONE (12:00)
[2017-08-31] MEDS ORDERED: PROPOFOL 200 MG/20 ML AMP IV ONE (12:00)
[2017-08-31] MEDS ORDERED: PHENYLEPH/NS 1000 MCG/10 ML SYR IV ONE (12:00)
[2017-08-31] MEDS ORDERED: LIDOCAINE HCL 1% PF 5 ML SYRINGE OTHER ONE (12:00)
[2017-08-31] MEDS ORDERED: ROCURONIUM INJ 50 MG/5 ML SYRINGE IV PUSH ONE (12:00)
[2017-08-31] MEDS: ACETAMINOPHEN 325 MG TAB PO PRN (13:06)
[2017-08-31] MEDS: SODIUM CHLORIDE 1 GRAM TAB PO SCH ×2 (13:06→18:41)
--- NOTE | 2017-08-31 13:16 | EKG ---
Date Performed: 08/31/2017 Time Performed: 06:01:02 PTAGE: 61 years EKG: Sinus rhythm Normal ECG NO PREVIOUS TRACING DOCTOR: Geoffrey Salians Interpretating Date/Time 08/31/2017 13:15:55
[2017-08-31] MEDS ORDERED: ACETAMINOPHEN 1000 MG/100 ML 0 ML IV ONE (14:21)
[2017-08-31] MEDS ORDERED: GENTAMICIN SULFATE 80 MG/2 ML VIAL ONE (14:24)
[2017-08-31] MEDS ORDERED: TOBRAMYCIN 1200 MG VIAL (ortho-sterile core) ONE (14:25)
[2017-08-31] MEDS ORDERED: VANCOMYCIN HCL 1000 MG VIAL ONE ×2 (14:25→14:55)
[2017-08-31] MEDS ORDERED: SODIUM CHLOR 0.9% 250 ML INJ 250 ML ONE (14:55)
[2017-08-31] MEDS ORDERED: ceFAZolin 2 GM PREMIX 50 ML ONE (14:55)
--- NOTE | 2017-08-31 16:28 | RADRPT ---
EXAM DATE/TIME: 08/31/2017 16:06 [facility] COMPARISON: No previous studies available for comparison. INDICATIONS : Right tibia ex fix. MEDICAL HISTORY : None. SURGICAL HISTORY : None. ENCOUNTER: Initial ACUITY: 1 day PAIN SCORE: 0/10 LOCATION: Right tibia FINDINGS: Two view examination of the right tibia demonstrates innumerable fractures involving both femoral con dyles and proximal tibia including the lateral tibial plateau and proximal fibula. There are innumera ble fragments. Bony mineralization is normal. The soft tissue structures are intact. CONCLUSION: Innumerable fracture fragments at the distal femur and proximal tibia. Dorian Romero MD on August 31, 2017 at 16:24 Board Certified Radiologist. This report was verified electronically.
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
[2017-08-31] MEDS ORDERED: Post-op Orders (for Pharmacy) XX ONE (16:30)
[2017-08-31] MEDS ORDERED: DO NOT ADM ANY ANTICOAGULANT DRUGS PRN (16:32)
[2017-08-31 16:52] LABS: HEMOGLOBIN A1a 1.2 %; HEMOGLOBIN A1b 0.8 %; HEMOGLOBIN Ao 85.8 %; HEMOGLOBIN F 0.9 %; HEMOGLOBIN LA1C 1.9 %; HEMOGLOBIN P3 3.6 %
[2017-08-31] MEDS: LACTATED RINGER'S 1000 ML INJ 1,000 ML IV SCH (17:10)
[2017-08-31] MEDS: GENTAMICIN 80 MG PREMIX 100 ML IV SCH (18:00)
[2017-08-31 18:10] VITALS: BP 121/78; PULSE 76; RESP 18; TEMP 95.8; O2SAT 100
[2017-08-31] MEDS: ceFAZolin 2 GM PREMIX 50 ML IV SCH (23:09)
[2017-09-01] VITALS (8 sets, daily range): BP systolic 123–142; BP diastolic 67–80; PULSE 79–102; RESP 18–20; TEMP 96–98.1; O2SAT 98–99
[2017-09-01] MEDS: GENTAMICIN 80 MG PREMIX 100 ML IV SCH ×3 (03:01→17:37)
[2017-09-01 06:51] LABS: AUTOMATED NEUTROPHIL # 5.5 TH/MM3 (1.8-7.7); BASOPHIL # 0.1 TH/MM3 (0-0.2); BASOPHIL % 0.7 % (0.0-2.0); EOSINOPHIL # 0.1 TH/MM3 (0-0.4); EOSINOPHIL % 1.4 % (0.0-4.0); HEMO FLAGS DIFF FINAL; LYMPH % 19.3 % (9.0-44.0); LYMPHOCYTE # 1.5 TH/MM3 (1.0-4.8); MEAN CELL VOLUME 80.4 FL (80.0-100.0); MEAN CORPUSCULAR HGB CONC 33.5 % (32.0-36.0); MONO % 9.9 % (0.0-8.0); NEUT % 68.7 % (16.0-70.0); PLATELET COUNT 438 TH/MM3 (150-450); RED BLOOD COUNT 3.11 MIL/MM3 (4.50-5.90); RED CELL DISTRIBUTION WIDTH 20.8 % (11.6-17.2)
--- NOTE | 2017-09-01 07:04 | PD.ORT.PN ---
Subjective Subjective Remarks Resting comfortably with no new complaints Objective Vitals Vital Signs Date Time Temp Pulse Resp B/P (MAP) Pulse Ox O2 Delivery O2 Flow Rate FiO2 09/01/17 04:00 96.9 82 18 131/70 (90) 99 09/01/17 00:00 96.8 88 18 129/78 (95) 99 08/31/17 18:10 95.8 76 18 121/78 (92) 100 08/31/17 17:35 75 14 134/61 (85) 99 Room Air 08/31/17 17:15 74 14 123/69 (87) 100 Room Air 08/31/17 16:53 97.5 74 14 138/73 (94) 100 Room Air 08/31/17 12:00 96.5 81 16 125/74 (91) 99 08/31/17 08:40 Room Air 08/31/17 08:00 96.6 79 18 123/69 (87) 98 I/O 08/31/17 08/31/17 08/31/17 09/01/17 09/01/17 09/01/17 07:00 15:00 23:00 07:00 15:00 23:00 Intake Total 1180 ml 960 ml Output Total 2575 ml 1050 ml 3200 ml Balance -2575 ml 130 ml -2240 ml Intake Oral 480 ml 960 ml Other 700 ml Output Urine Total 2575 ml 1000 ml 3200 ml Estimated Blood Loss 50 ml # Voids 3 # Bowel Movements 0 0 0 Result Diagram: 09/01/17 0612 08/31/17 0638 Imaging Last 24 hours Impressions Tibia/Fibula X-Ray 08/22/172047 Signed Impressions: Service Date/Time: Tuesday, August 22, 2017 21:08 - CONCLUSION: Severely comminuted fracture of the proximal tibia and fracturing of the distal femur. Raúl May MD Knee X-Ray [id number]/22/172047 Signed Impressions: Service Date/Time: Tuesday, August 22, 2017 21:07 - CONCLUSION: Severely comminuted distal tibial fractures and fractures of the distal femur at the condyles. This possible fracture of the proximal fibula. There is air in the soft tissues and in the knee joint space. Raúl May MD Femur X-Ray [id number]/22/172047 Signed Impressions: Service Date/Time: Tuesday, August 22, 2017 21:04 - CONCLUSION: Fracturing at the femoral condyles and tibial plateau. Raúl May MD Objective Remarks Right lower extremity: External fixation in place. Clean dry dressings intact. Wound VAC in position with appropriate seal. Distally intact sensation with good capillary refills Assessment & Plan Assessment and Plan 1) Right open distal femur and tibia plateau status post irrigation debridement with wound closure and external fixation 08/23/17 Revision of external fixation, irrigation debridement and wound VAC application POD 1 Nonweightbearing right lower extremity Maintain wound VAC Pin care twice a day Elevation and ice Keep leg straight to avoid pressure of his knee touching the external fixators We'll continue to plan on further surgery is once soft tissue is ready Bayron Sung Jr. Sep 01, 2017 07:04
[2017-09-01 07:19] LABS: ANION GAP 9 MEQ/L (5-15); AST (GOT) 20 U/L (15-37); BICARBONATE 25.1 MEQ/L (21.0-32.0); BLOOD UREA NITROGEN 12 MG/DL (7-18); CHLORIDE 98 MEQ/L (98-107); GLOMERULAR FILTRATION RATE 109 ML/MIN (>89); MAGNESIUM 2.2 MG/DL (1.5-2.5); POTASSIUM 3.9 MEQ/L (3.5-5.1); SODIUM (NA) 132 MEQ/L (136-145)
[2017-09-01 07:23] LABS: ALKALINE PHOSPHATASE 65 U/L (45-117); ALT (GPT) 30 U/L (12-78); TOTAL BILIRUBIN ADULT 0.5 MG/DL (0.2-1.0)
[2017-09-01] MEDS: ceFAZolin 2 GM PREMIX 50 ML IV SCH ×3 (08:00→23:43)
[2017-09-01] MEDS: SODIUM CHLORIDE 0.9% FLUSH 10 ML FLUSH IV FLUSH SCH ×2 (08:41→20:02)
[2017-09-01] MEDS: LACTATED RINGER'S 1000 ML INJ 1,000 ML IV SCH (08:41)
[2017-09-01] MEDS: BACITRACIN TOP OINT 15 GM TUBE TOPICAL SCH (08:42)
[2017-09-01] MEDS: SODIUM CHLORIDE 1 GRAM TAB PO SCH ×3 (08:42→17:37)
[2017-09-01] MEDS: DOCUSATE SODIUM 50 MG/SENNA 8.6 MG TAB PO SCH ×2 (08:42→20:03)
--- NOTE | 2017-09-01 08:42 | HHI.PR ---
Subjective Remarks Patient in nad. Says he has more pain at the surgical site however is fairly controlled by meds. No fever or chills. Denies chest pain or sob. No n/v/d/c. Objective Vitals Vital Signs Date Time Temp Pulse Resp B/P (MAP) Pulse Ox O2 Delivery O2 Flow Rate FiO2 09/01/17 08:00 99 09/01/17 07:33 98.1 79 19 140/80 (100) 99 09/01/17 04:00 96.9 82 18 131/70 (90) 99 09/01/17 00:00 96.8 88 18 129/78 (95) 99 08/31/17 18:10 95.8 76 18 121/78 (92) 100 08/31/17 17:35 75 14 134/61 (85) 99 Room Air 08/31/17 17:15 74 14 123/69 (87) 100 Room Air 08/31/17 16:53 97.5 74 14 138/73 (94) 100 Room Air 08/31/17 12:00 96.5 81 16 125/74 (91) 99 08/31/17 08:40 Room Air I/O 08/31/17 08/31/17 08/31/17 09/01/17 09/01/17 09/01/17 07:00 15:00 23:00 07:00 15:00 23:00 Intake Total 1180 ml 960 ml Output Total 2575 ml 1050 ml 3200 ml Balance -2575 ml 130 ml -2240 ml Intake Oral 480 ml 960 ml Other 700 ml Output Urine Total 2575 ml 1000 ml 3200 ml Estimated Blood Loss 50 ml # Voids 3 # Bowel Movements 0 0 0 Result Diagram: 09/01/17 0612 09/01/17 0612 Imaging Last Impressions Tibia/Fibula X-Ray 08/31/17 0000 Signed Impressions: Service Date/Time: Thursday, August 31, 2017 16:06 - CONCLUSION: Innumerable fracture fragments at the distal femur and proximal tibia. Dorian Romero MD Lower Extremity CT 08/23/17 0000 Signed Impressions: Service Date/Time: Wednesday, August 23, 2017 09:58 - CONCLUSION: 1. Extensively comminuted fractures of the distal femur and proximal tibia with intra-articular extension. 2. Minimally displaced fracture through the proximal fibula. The patella is intact. Levi Ely MD Knee X-Ray 08/23/17 0000 Signed Impressions: Service Date/Time: Wednesday, August 23, 2017 08:18 - CONCLUSION: Fluoroscopic images of tibial fracture. Improved alignment. Godwin Fowler MD Femur X-Ray [id number]/[id number] Signed Impressions: Service Date/Time: Tuesday, August 22, 2017 21:04 - CONCLUSION: Fracturing at the femoral condyles and tibial plateau. Raúl May MD Objective Remarks GENERAL: Awake alert oriented talkative and cooperative, appears in nad. CARDIOVASCULAR: Regular rate and rhythm without murmurs, gallops, or rubs. S1 and S2 no S3 or S4 RESPIRATORY: Clear to auscultation. Breath sounds equal bilaterally. No wheezes , rales, or rhonchi. GASTROINTESTINAL: Abdomen soft, non-tender, nondistended. No hepato-splenomegaly , or palpable masses. No guarding. MUSCULOSKELETAL: Right leg with Orthotics in place. Right leg with external fixation in place NEUROLOGICAL: Awake and alert. Cranial nerves II through XII intact. Motor and sensory grossly within normal limits. Normal speech. Procedures With Diagnosis of Severely comminuted open right proximal tibia fracture, open right distal femur fracture, Status post I and D of open right tibia, irrigation debridement of open right femur, and complex wound closure 20 cms, closed reduction with manipulation of right distal femur and proximal tibia fractures, external fixation right lower extremity. 08/23/18. Open right distal femur fracture, open right distal tibia fracture s/p Irrigation and debridement of open right distal femur fracture, irrigation debridement of open right tibia plateau fracture, placement of antibiotic spacer, revision of external fixation, application wound VAC dressing by Dr Watts on 08/31/17 A/P Assessment and Plan Severely comminuted open right proximal tibia fracture, open right distal femur fracture Status post I and D of open right tibia, irrigation debridement of open right femur, and complex wound closure 20 cms, closed reduction with manipulation of right distal femur and proximal tibia fractures, external fixation right lower extremity. 08/23/18. Recommended Non weightbearing right lower extremity, Daily dressing changes beginning on POD 2 with Xeroform 4 x 4's ABDs and light wrap, Pin care twice a day, elevation and Ice. Open right distal femur fracture, open right distal tibia fracture s/p Irrigation and debridement of open right distal femur fracture, irrigation debridement of open right tibia plateau fracture, placement of antibiotic spacer, revision of external fixation, application wound VAC dressing by Dr Watts on 08/31/17 Anemia blood loss anemia and Iron deficiency anemia. Hemoglobin initially was 5.9 and considered an error so was not reported by nurse then taken a second set and was 6.3 he received two units of PRBCs, Hemoglobin 8 now he will continue Iron IV and follow H and H if not improving may need blood transfusion for surgical purposes. Hemoglobin 9.3 trending down will follow Hyponatremia replace with NaCl 1 gm tid. Monitor closely Na level for overcorrection Monitor Labs in AM Discussed with patient and nurse DVT prophylaxis Lovenox. Discharge Planning Pending improvement. Patient need further orthopedic surgeries DC when improved and cleared by ortho. Starr Mirelse MD Sep 01, 2017 08:42
[2017-09-01] MEDS: ACETAMINOPHEN/HYDROcodone 325 MG/10 MG TAB PO PRN (11:45)
[2017-09-02] VITALS: BP 142/83; PULSE 91; RESP 20; TEMP 97.9; O2SAT 98
[2017-09-02] MEDS: GENTAMICIN 80 MG PREMIX 100 ML IV SCH (02:47)
[2017-09-02] MEDS: ACETAMINOPHEN 325 MG TAB PO PRN (03:06)
[2017-09-02] MEDS: LACTATED RINGER'S 1000 ML INJ 1,000 ML IV SCH ×2 (04:09→19:00)
[2017-09-02] MEDS: ceFAZolin 2 GM PREMIX 50 ML IV SCH (05:04)
[2017-09-02 06:34] LABS: AUTOMATED NEUTROPHIL # 5.1 TH/MM3 (1.8-7.7); BASOPHIL # 0.1 TH/MM3 (0-0.2); EOSINOPHIL # 0.3 TH/MM3 (0-0.4); EOSINOPHIL % 3.7 % (0.0-4.0); HEMATOCRIT 25.1 % (39.0-51.0); HEMO FLAGS DIFF FINAL; LYMPH % 19.9 % (9.0-44.0); LYMPHOCYTE # 1.5 TH/MM3 (1.0-4.8); MEAN CORPUSCULAR HEMOGLOBIN 27.8 PG (27.0-34.0); MEAN CORPUSCULAR HGB CONC 34.7 % (32.0-36.0); MONO % 7.1 % (0.0-8.0); NEUT % 68.3 % (16.0-70.0); PLATELET COUNT 440 TH/MM3 (150-450); RED BLOOD COUNT 3.13 MIL/MM3 (4.50-5.90); RED CELL DISTRIBUTION WIDTH 20.2 % (11.6-17.2); WHITE BLOOD COUNT 7.5 TH/MM3 (4.0-11.0)
[2017-09-02] MEDS ORDERED: HYDR-3583 PO (06:50)
[2017-09-02] MEDS ORDERED: WHEEMIS3 (06:50)
[2017-09-02] MEDS ORDERED: XARE10TA PO (06:50)
[2017-09-02] MEDS ORDERED: WALKER/ADULT/FO1 MIS (06:50)
[2017-09-02 06:56] LABS: BICARBONATE 25.1 MEQ/L (21.0-32.0); POTASSIUM 4.1 MEQ/L (3.5-5.1)
[2017-09-02 07:37] VITALS: BP 150/79; PULSE 79; RESP 18; TEMP 95.6; O2SAT 99
--- NOTE | 2017-09-02 08:16 | HHI.PR ---
Subjective Remarks Feels tired did not sleep overnight. No n/v/d/c. Deneis chest pain or sob. Pain in his leg is controlled by meds. Says she would not be able to do PT. Objective Vitals Vital Signs Date Time Temp Pulse Resp B/P (MAP) Pulse Ox O2 Delivery O2 Flow Rate FiO2 09/02/17 07:37 95.6 79 18 150/79 (102) 99 09/02/17 00:00 97.9 91 20 142/83 (102) 98 09/01/17 20:00 96.0 85 20 142/72 (95) 99 09/01/17 18:09 99 21 09/01/17 16:00 96.3 102 19 123/67 (85) 99 09/01/17 11:43 97.9 95 19 130/73 (92) 98 I/O 09/01/17 09/01/17 09/01/17 09/02/17 09/02/17 09/02/17 07:00 15:00 23:00 07:00 15:00 23:00 Intake Total 960 ml 2427 ml 1050 ml Output Total 3200 ml 1075 ml 0 ml 2100 ml Balance -2240 ml 1352 ml 0 ml -1050 ml Intake Oral 960 ml 950 ml 900 ml IV Total 1477 ml 150 ml Output Urine Total 3200 ml 1075 ml 2100 ml Drainage Total 0 ml 0 ml # Bowel Movements 0 0 0 Result Diagram: 09/02/17 0608 09/02/17 0608 Imaging Last Impressions Tibia/Fibula X-Ray 08/31/17 0000 Signed Impressions: Service Date/Time: Thursday, August 31, 2017 16:06 - CONCLUSION: Innumerable fracture fragments at the distal femur and proximal tibia. Dorian Romero MD Lower Extremity CT 08/23/17 0000 Signed Impressions: Service Date/Time: Wednesday, August 23, 2017 09:58 - CONCLUSION: 1. Extensively comminuted fractures of the distal femur and proximal tibia with intra-articular extension. 2. Minimally displaced fracture through the proximal fibula. The patella is intact. Levi Ely MD Knee X-Ray 08/23/17 0000 Signed Impressions: Service Date/Time: Wednesday, August 23, 2017 08:18 - CONCLUSION: Fluoroscopic images of tibial fracture. Improved alignment. Godwin F. Tocci, MD Femur X-Ray [id number] Signed Impressions: Service Date/Time: Tuesday, August 22, 2017 21:04 - CONCLUSION: Fracturing at the femoral condyles and tibial plateau. Raúl May MD Objective Remarks GENERAL: Awake alert oriented talkative and cooperative, appears in nad. CARDIOVASCULAR: Regular rate and rhythm without murmurs, gallops, or rubs. S1 and S2 no S3 or S4 RESPIRATORY: Clear to auscultation. Breath sounds equal bilaterally. No wheezes , rales, or rhonchi. GASTROINTESTINAL: Abdomen soft, non-tender, nondistended. No hepato-splenomegaly , or palpable masses. No guarding. MUSCULOSKELETAL: Right leg with Orthotics in place. Right leg with external fixation in place NEUROLOGICAL: Awake and alert. Cranial nerves II through XII intact. Motor and sensory grossly within normal limits. Normal speech. Procedures With Diagnosis of Severely comminuted open right proximal tibia fracture, open right distal femur fracture, Status post I and D of open right tibia, irrigation debridement of open right femur, and complex wound closure 20 cms, closed reduction with manipulation of right distal femur and proximal tibia fractures, external fixation right lower extremity. 08/23/18. Open right distal femur fracture, open right distal tibia fracture s/p Irrigation and debridement of open right distal femur fracture, irrigation debridement of open right tibia plateau fracture, placement of antibiotic spacer, revision of external fixation, application wound VAC dressing by Dr Watts on 08/31/17 A/P Assessment and Plan Severely comminuted open right proximal tibia fracture, open right distal femur fracture Status post I and D of open right tibia, irrigation debridement of open right femur, and complex wound closure 20 cms, closed reduction with manipulation of right distal femur and proximal tibia fractures, external fixation right lower extremity. 08/23/18. Recommended Non weightbearing right lower extremity, Daily dressing changes beginning on POD 2 with Xeroform 4 x 4's ABDs and light wrap, Pin care twice a day, elevation and Ice. Open right distal femur fracture, open right distal tibia fracture s/p Irrigation and debridement of open right distal femur fracture, irrigation debridement of open right tibia plateau fracture, placement of antibiotic spacer, revision of external fixation, application wound VAC dressing by Dr Watts on 08/31/17 Anemia blood loss anemia and Iron deficiency anemia. Hemoglobin initially was 5.9 and considered an error so was not reported by nurse then taken a second set and was 6.3 he received two units of PRBCs, Hemoglobin 8 now he will continue Iron IV and follow H and H if not improving may need blood transfusion for surgical purposes. Hemoglobin 9.3 trending down will follow Hyponatremia replace with NaCl 1 gm tid. Monitor closely Na level for overcorrection. Improving. Monitor Labs in AM Discussed with patient and nurse DVT prophylaxis Lovenox. Discharge Planning Pending improvement. Patient need further orthopedic surgeries DC when improved and cleared by ortho. Starr Mireles MD Sep 02, 2017 08:16
[2017-09-02] MEDS: DOCUSATE SODIUM 50 MG/SENNA 8.6 MG TAB PO SCH ×2 (10:20→21:00)
[2017-09-02] MEDS: SODIUM CHLORIDE 0.9% FLUSH 10 ML FLUSH IV FLUSH SCH ×2 (10:21→21:00)
[2017-09-02] MEDS: SODIUM CHLORIDE 1 GRAM TAB PO SCH ×3 (10:21→18:01)
[2017-09-02] MEDS: BACITRACIN TOP OINT 15 GM TUBE TOPICAL SCH (10:22)
[2017-09-02] MEDS: ACETAMINOPHEN/HYDROcodone 325 MG/10 MG TAB PO PRN ×2 (10:33→18:00)
[2017-09-02 11:44] VITALS: BP 150/76; PULSE 99; RESP 18; TEMP 96.5; O2SAT 99
[2017-09-02 15:35] VITALS: BP 125/67; PULSE 87; RESP 18; TEMP 96.3; O2SAT 98
[2017-09-02 20:00] VITALS: BP 121/84; PULSE 88; RESP 17; TEMP 96.8; O2SAT 99
[2017-09-03 00:35] VITALS: BP 117/69; PULSE 93; RESP 18; TEMP 97.2; O2SAT 97
[2017-09-03 04:15] VITALS: BP 139/81; PULSE 86; RESP 18; TEMP 97.4; O2SAT 96
[2017-09-03 06:28] LABS: AUTOMATED NEUTROPHIL # 5.6 TH/MM3 (1.8-7.7); BASOPHIL # 0.1 TH/MM3 (0-0.2); EOSINOPHIL # 0.3 TH/MM3 (0-0.4); EOSINOPHIL % 3.4 % (0.0-4.0); HEMATOCRIT 27.2 % (39.0-51.0); HEMO FLAGS DIFF FINAL; LYMPH % 15.8 % (9.0-44.0); LYMPHOCYTE # 1.2 TH/MM3 (1.0-4.8); MEAN CELL VOLUME 80.3 FL (80.0-100.0); MEAN CORPUSCULAR HEMOGLOBIN 26.8 PG (27.0-34.0); MEAN CORPUSCULAR HGB CONC 33.3 % (32.0-36.0); MONO % 7.2 % (0.0-8.0); NEUT % 72.6 % (16.0-70.0); PLATELET COUNT 463 TH/MM3 (150-450); RED BLOOD COUNT 3.39 MIL/MM3 (4.50-5.90); RED CELL DISTRIBUTION WIDTH 20.2 % (11.6-17.2); WHITE BLOOD COUNT 7.8 TH/MM3 (4.0-11.0)
[2017-09-03 06:42] LABS: BICARBONATE 25.2 MEQ/L (21.0-32.0)
--- NOTE | 2017-09-03 07:09 | PD.ORT.PN ---
Subjective Subjective Remarks s/p application of exfix right distal femur and proximal tibia fxs doing well. no changes. Objective Vitals Vital Signs Date Time Temp Pulse Resp B/P (MAP) Pulse Ox O2 Delivery O2 Flow Rate FiO2 09/03/17 00:35 97.2 93 18 117/69 (85) 97 09/02/17 20:00 96.8 88 17 121/84 (96) 99 09/02/17 15:35 96.3 87 18 125/67 (86) 98 09/02/17 11:44 96.5 99 18 150/76 (100) 99 09/02/17 07:37 95.6 79 18 150/79 (102) 99 I/O 09/02/17 09/02/17 09/02/17 09/03/17 09/03/17 09/03/17 07:00 15:00 23:00 07:00 15:00 23:00 Intake Total 1050 ml 1000 ml 480 ml Output Total 2100 ml 2600 ml 1300 ml Balance -1050 ml -1600 ml -820 ml Intake Oral 900 ml 1000 ml 480 ml IV Total 150 ml Output Urine Total 2100 ml 2600 ml 1300 ml # Bowel Movements 0 0 Result Diagram: 09/03/17 0527 09/03/17 0527 Imaging Last 24 hours Impressions Tibia/Fibula X-Ray [id number]/22/172047 Signed Impressions: Service Date/Time: Tuesday, August 22, 2017 21:08 - CONCLUSION: Severely comminuted fracture of the proximal tibia and fracturing of the distal femur. Raúl May MD Knee X-Ray [id number]/22/172047 Signed Impressions: Service Date/Time: Tuesday, August 22, 2017 21:07 - CONCLUSION: Severely comminuted distal tibial fractures and fractures of the distal femur at the condyles. This possible fracture of the proximal fibula. There is air in the soft tissues and in the knee joint space. Raúl May MD Femur X-Ray [id number] Signed Impressions: Service Date/Time: Tuesday, August 22, 2017 21:04 - CONCLUSION: Fracturing at the femoral condyles and tibial plateau. Raúl May MD Objective Remarks Right lower extremity: External fixation in place. Clean dry dressings intact. Wound VAC in position with appropriate seal. Distally intact sensation with good capillary refills. vac removed at bedside. incision visualized. healing well. no drainage. moderate road rash medially. skin appropriate. Assessment & Plan Assessment and Plan 1) Right open distal femur and tibia plateau status post irrigation debridement with wound closure and external fixation 08/23/17 Revision of external fixation, irrigation debridement and wound VAC application POD 3 Nonweightbearing right lower extremity vac DCd at bedside today daily dressing changes with xeroform/4x4/AILYN Pin care twice a day Elevation and ice ortho cleared for DC at this point. recommed SNF. but if can make arrangement for [facility], that is acceptable. f/u with Stefanie in office in 2 weeks for re-eval for surgery Samson Verma/[facility] Sep 03, 2017 07:09
[2017-09-03] MEDS: LACTATED RINGER'S 1000 ML INJ 1,000 ML IV SCH (07:30)
[2017-09-03 08:00] VITALS: BP 132/85; PULSE 94; RESP 16; TEMP 97.6; O2SAT 98
--- NOTE | 2017-09-03 08:14 | HHI.PR ---
Subjective Remarks in no acute distress. pain is controlled. no new complaints. d/w the RN and no acute issues over night. Objective Vitals Vital Signs Date Time Temp Pulse Resp B/P (MAP) Pulse Ox O2 Delivery O2 Flow Rate FiO2 09/03/17 04:15 97.4 86 18 139/81 (100) 96 09/03/17 00:35 97.2 93 18 117/69 (85) 97 09/02/17 20:00 96.8 88 17 121/84 (96) 99 09/02/17 15:35 96.3 87 18 125/67 (86) 98 09/02/17 11:44 96.5 99 18 150/76 (100) 99 I/O 09/02/17 09/02/17 09/02/17 09/03/17 09/03/17 09/03/17 07:00 15:00 23:00 07:00 15:00 23:00 Intake Total 1050 ml 1000 ml 480 ml 480 ml Output Total 2100 ml 2600 ml 1400 ml 700 ml Balance -1050 ml -1600 ml -920 ml -220 ml Intake Oral 900 ml 1000 ml 480 ml 480 ml IV Total 150 ml Output Urine Total 2100 ml 2600 ml 1300 ml 700 ml Drainage Total 100 ml # Bowel Movements 0 0 0 Result Diagram: 09/03/17 0527 09/03/17 0527 Imaging Last Impressions Tibia/Fibula X-Ray 08/31/17 0000 Signed Impressions: Service Date/Time: Thursday, August 31, 2017 16:06 - CONCLUSION: Innumerable fracture fragments at the distal femur and proximal tibia. Dorian Romero MD Lower Extremity CT 08/23/17 0000 Signed Impressions: Service Date/Time: Wednesday, August 23, 2017 09:58 - CONCLUSION: 1. Extensively comminuted fractures of the distal femur and proximal tibia with intra-articular extension. 2. Minimally displaced fracture through the proximal fibula. The patella is intact. Levi Ely MD Knee X-Ray 08/23/17 0000 Signed Impressions: Service Date/Time: Wednesday, August 23, 2017 08:18 - CONCLUSION: Fluoroscopic images of tibial fracture. Improved alignment. Godwin oFwler MD Femur X-Ray [id number] Signed Impressions: Service Date/Time: Clarence, August 22, 2017 21:04 - CONCLUSION: Fracturing at the femoral condyles and tibial plateau. Raúl May MD Objective Remarks GENERAL: This is a well-nourished, well-developed patient, in no apparent distress. CARDIOVASCULAR: Regular rate and regular rhythm without murmurs, gallops, or rubs. RESPIRATORY: Clear to auscultation. Breath sounds equal bilaterally. No wheezes , rales, or rhonchi. GASTROINTESTINAL: Abdomen soft, non-tender, nondistended. Normal, active bowel sounds MUSCULOSKELETAL: external fixator on the right leg. NEURO: Alert & Oriented x4 to person, place, time, situation. Moves all ext x4 Procedures With Diagnosis of Severely comminuted open right proximal tibia fracture, open right distal femur fracture, Status post I and D of open right tibia, irrigation debridement of open right femur, and complex wound closure 20 cms, closed reduction with manipulation of right distal femur and proximal tibia fractures, external fixation right lower extremity. 08/23/18. Open right distal femur fracture, open right distal tibia fracture s/p Irrigation and debridement of open right distal femur fracture, irrigation debridement of open right tibia plateau fracture, placement of antibiotic spacer, revision of external fixation, application wound VAC dressing by Dr Watts on 08/31/17 Medications and IVs Inpatient Medications Acetaminophen (Tylenol) 650 mg Q4H PRN PO SEE LABEL COMMENTS Last administered on 08/25/17 04:14; Start 08/24/17 at 16:15; Stop 08/25/17 at 04:19; Status DC Acetaminophen/ Hydrocodone Bitart (Lawson 10-325 Mg) 1 tab Q3H PRN PO PAIN 3<10 Last administered on 09/02/17 18:00; Start 08/23/17 at 08:30 Bacitracin (Baciguent Oint) 1 applic DAILY TOPICAL Last administered on 10:22; Start 08/26/17 at 09:00 Bisacodyl (Dulcolax Supp) 10 mg DAILY PRN RECTAL SEVERE CONSITIPATION; Start 08/22/17 at 23:00 Cefazolin Sodium/ Dextrose 50 ml @ 100 mls/hr Q8H IV Last administered on 05:04; Start 08/31/17 at 23:00; Stop 09/02/17 at 07:29; Status DC Chlorhexidine Gluconate (Chlorhexidine 2% Cloth) 3 pack [employer]TING [employer] PRN TOPICAL SEE LABEL COMMENTS; Start 08/31/17 at 00:30; Stop 08/31/17 at 17:32; Status DC Diphenhydramine HCl (Benadryl) 25 mg Q4H PRN PO SEE LABEL COMMENTS Last administered on 08/25/17 04:14; Start 08/24/17 at 16:15; Stop 08/25/17 at 04 :19; Status DC Enoxaparin Sodium (Lovenox Inj) 40 mg Q24H SQ Last administered on 08/30/17 09:46; Start 08/24/17 at 08:00; Status Future Hold Furosemide (Lasix Inj) 20 mg UNSCH X1 IV PUSH Last administered on 08/25/17 04:15; Start 08/24/17 at 16:15; Stop 08/25/17 at 04:15; Status DC Gentamicin Sulfate 80 mg/ Sodium Chloride 102 ml @ 100 mls/hr Q8H IV Last administered on 08/22/17 22:48; Start 08/22/17 at 22:00; Stop 08/23/17 at 09 :27; Status DC Gentamicin Sulfate/Sodium Chloride 100 ml @ 200 mls/hr Q8H IV Last administered on 09/02/17 02:47; Start 08/31/17 at 18:00; Stop 09/02/17 at 02 :29; Status DC Hydromorphone HCl (Dilaudid Pf Inj) 1 mg Q4H PRN IV PUSH pain 6-10 Last administered on 08/23/17 02:15; Start 08/22/17 at 23:00 Iron Sucrose 100 mg/Sodium Chloride 105 ml @ 105 mls/hr Q24H IV Last administered on 08/28/17 12:37; Start 08/26/17 at 12:00; Stop 08/28/17 at 12 :59; Status DC Ketorolac Tromethamine (Toradol Inj) 30 mg Q8HR IVP Last administered on 04:15; Start 08/23/17 at 14:00; Stop 08/25/17 at 06:01; Status DC Lactated Ringer's 1,000 ml @ 80 mls/hr [id number] IV Last administered on 08:41; Start 08/31/17 at 17:00 Lactulose (Lactulose Liq) 30 ml DAILY PRN PO SEVERE CONSITIPATION Last administered on 09/02/17 10:20; Start 08/22/17 at 23:00 Lidocaine HCl (Xylocaine 1% Inj) 30 ml ONCE ONCE INFIL Last administered on 22:48; Start 08/22/17 at 22:00; Stop 08/22/17 at 22:01; Status DC Magnesium Hydroxide (Milk Of Magnesia Liq) 30 ml Q12H PRN PO Mild constipation ; Start 08/22/17 at 23:00 Metoprolol Tartrate (Lopressor) 25 mg [employer]TING [employer] PRN PO SEE LABEL COMMENTS; Start 08/23/17 at 02:30; Stop 08/26/17 at 02:29; Status DC Miscellaneous Information ALL NURSING DEPARTME... UNSCH PRN .XX SEE LABEL COMMENTS; Start 08/31/17 at 16:32; Stop 09/01/17 at 16:31; Status DC Miscellaneous Information (Post-op Orders (for Pharmacy)) STAT ONCE XX ; Start 08/31/17 at 16:30; Stop 08/31/17 at 17:31; Status DC Morphine Sulfate (Morphine Inj) 4 mg ONCE ONCE IV PUSH Last administered on 21:58; Start 08/22/17 at 21:00; Stop 08/22/17 at 21:01; Status DC Naloxone HCl (Narcan Inj) 0.4 mg UNSCH PRN IV PUSH SEE LABEL COMMENTS; Start 08/22/17 at 23:00 Ondansetron HCl (Zofran Inj) 4 mg Q6H PRN IVP NAUSEA OR VOMITING; Start at 23:00 Povidone Iodine (Betadine 5% Antisepsis Kit) 1 applic [employer]TING [employer] PRN EACH NARE SEE LABEL COMMENTS; Start 08/31/17 at 00:30; Stop 08/31/17 at 17:32; Status DC Senna/Docusate Sodium (Suyapa-Colace) 1 tab BID PO Last administered on 10:20; Start 08/23/17 at 09:00 Sennosides (Senokot) 17.2 mg Q12H PRN PO Moderate constipation Last administered on 09/01/17 20:03; Start 08/22/17 at 23:00 Sodium Chloride (NS Flush) 2 ml BID IV FLUSH Last administered on 09/02/17 21 :00; Start 08/23/17 at 09:00 Sodium Chloride (Sodium Chloride) 1 gm TID PO Last administered on 09/02/17 18:01; Start 08/31/17 at 13:00 A/P Assessment and Plan Severely comminuted open right proximal tibia fracture, open right distal femur fracture Status post I and D of open right tibia, irrigation debridement of open right femur, and complex wound closure 20 cms, closed reduction with manipulation of right distal femur and proximal tibia fractures, external fixation right lower extremity. Nonweightbearing right lower extremity,vac DCd at bedside today,daily dressing changes with xeroform/4x4/AILYN,Pin care twice a day,Elevation and ice. cleared by ortho for discharge. Open right distal femur fracture, open right distal tibia fracture s/p Irrigation and debridement of open right distal femur fracture, irrigation debridement of open right tibia plateau fracture, placement of antibiotic spacer, revision of external fixation, application wound VAC which has been removed. Anemia blood loss anemia . s/p PRBC transfusion; H/H improved and stable. Hyponatremia replaced with po NaCl. Discussed with patient and nurse DVT prophylaxis ; on Xarelto upon discharge. Discharge Planning dc to SNF when arrangements made. f/u; pcp and ortho. see med list. d/w the patient and RN. time spent 35 min. Toño Sinclair MD Sep 03, 2017 08:14
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
[2017-09-03] MEDS: DOCUSATE SODIUM 50 MG/SENNA 8.6 MG TAB PO SCH ×2 (08:40→08:42)
[2017-09-03] MEDS: SODIUM CHLORIDE 1 GRAM TAB PO SCH ×2 (08:40→14:08)
[2017-09-03] MEDS: SODIUM CHLORIDE 0.9% FLUSH 10 ML FLUSH IV FLUSH SCH (08:40)
[2017-09-03] MEDS: BACITRACIN TOP OINT 15 GM TUBE TOPICAL SCH (08:41)
[2017-09-03 12:00] VITALS: BP 159/58; PULSE 99; RESP 16; TEMP 98; O2SAT 97
[2017-09-03] MEDS: ACETAMINOPHEN/HYDROcodone 325 MG/10 MG TAB PO PRN (14:08)
== END 2017-09-03 15:44 | DRG 463 ==
LOC: NEPE 20:37 → NEDA 21:56 → N06B 08-23 01:40
PROVIDERS: ADMIT Internal Medicine; ATTEND Internal Medicine
PROC: 0HQKXZZ Repair Right Lower Leg Skin, External Approach (ICD-10-PCS; 2017-08-22)
PROC: 0QBB0ZZ Excision of Right Lower Femur, Open Approach (ICD-10-PCS; 2017-08-23)
PROC: 0QSB35Z Reposition Right Lower Femur with External Fixation Device, Percutaneous Approach (ICD-10-PCS; 2017-08-23)
PROC: 0QBG0ZZ Excision of Right Tibia, Open Approach (ICD-10-PCS; 2017-08-23)
PROC: 0QSG35Z Reposition Right Tibia with External Fixation Device, Percutaneous Approach (ICD-10-PCS; 2017-08-23)
PROC: 30233N1 Transfusion of Nonautologous Red Blood Cells into Peripheral Vein, Percutaneous Approach (ICD-10-PCS; 2017-08-24)
PROC: 0QW Lower Bones, Revision (ICD-10-PCS; 2017-08-31)
PROC: 3E0V329 Introduction of Other Anti-infective into Bones, Percutaneous Approach (ICD-10-PCS; 2017-08-31)
PROC: 0JBN0ZZ Excision of Right Lower Leg Subcutaneous Tissue and Fascia, Open Approach (ICD-10-PCS; principal; 2017-08-31 15:02)
DX: S72.401B Unspecified fracture of lower end of right femur, initial encounter for open fracture type I or II (principal); S82.142B Displaced bicondylar fracture of left tibia, initial encounter for open fracture type I or II; F84.0 Autistic disorder; E87.1 Hypo-osmolality and hyponatremia; V09.09XA Pedestrian injured in nontraffic accident involving other motor vehicles, initial encounter; Y93.89 Activity, other specified; D50.0 Iron deficiency anemia secondary to blood loss (chronic)
CPT/HCPCS: 12006; 36415; 36430; 73552; 73560; 73590; 73700; 76000; 76937; 80048; 80053; 83036; 83735; 84100; 84439; 84443; 85014; 85018; 85025; 85610; 85730; 86850; 86900; 86901; 86920; 93005; 94150; C1713; J0131; J0690; J1100; J1170; J1580; J1650; J1756; J1885; J1940; J2250; J2270; J2370; J2405; J2710; J3010; J3370; J7030; J7050; J7120; P9016

== ENCOUNTER → 2017-09-27 | Day surgery (SDC) | payer OTHER ==
[~2017-09-27] VITALS: Ht 185.4 cm; Wt 75.0 kg
[~2017-09-27] MED LIST: *morphine SULFATE 10 MG/ML PERIprocedure ONLY ONE; ACETAMINOPHEN/HYDROcodone 325 MG/10 MG TAB PO PRN; B-1250TA PO; CHLORHEXIDINE GLUCONATE 2 % 1 PACK (2 CLOTHS) TOPICAL PRN; CHLORHEXIDINE GLUCONATE 4% SOLN 120 ML BTL TOPICAL SCH; DO NOT ADM ANY ANTICOAGULANT DRUGS PRN; GENTAMICIN SULFATE 80 MG/2 ML VIAL ONE; HYDR-3366 PO; HYDR-3583 PO; KETOROLAC TROMETHAMINE 30 MG/ML (IVP) VIAL IVP SCH; LACTATED RINGER'S 1000 ML IV PRN; METOPROLOL TARTRATE 25 MG TAB PO PRN; MIDAZOLAM HCL 2 MG/2 ML VIAL ONE; MORPHINE SULFATE 4 MG/ML INJ IV PUSH PRN; ONDANSETRON HCL 4 MG/2 ML VIAL IVP PRN; POVIDONE IODINE 5% (ANTISEPSIS KIT) 4 APPLICATIONS EACH NARE PRN; SODIUM CHLORID 0.9% 500 ML IV PRN; VANCOMYCIN 1000 MG/NS 250 ML (for <70 kg) IV SCH; VANCOMYCIN HCL 1000 MG VIAL ONE; XARE10TA PO; ceFAZolin 2 GM PREMIX 50 ML IV SCH; diphenhydrAMINE HCL 25 MG CAP PO PRN
--- NOTE | 2017-09-27 09:33 | PD.OP ---
cc: Kiko Rees MD Operative Report Date of Surgery: Sep 27, 2017 Preoperative Diagnosis: Comminuted open right bicondylar tibial plateau fracture, right tibia shaft fracture Postoperative Diagnosis: Procedure: Revision of external fixation, closed reduction of tibial shaft fracture with manipulation, open reduction internal fixation right tibial plateau with allograft bone grafting Anesthesia: Gen. Surgeon: Kiko Rees Spring Repairer Helper Hand(s): COLIN Anderson PA-C The surgical procedure was assisted by my physician investment sales assistant. My P.A. presence was necessary throughout this case for the manipulation and positioning of the surgical extremity. My P.A. was assisting me throughout the duration of this procedure. The skill set of a physician investment sales assistant was medically necessary to complete this procedure. During the surgical case the operating room surgical technician was working at the back table and the physician investment sales assistant was directly assisting me. Operation and Findings: Louis sustained an injury resulting in comminuted fractures of [right distal femur, right tibia plateau, and right tibia shaft]. Patient was seen and evaluated preoperatively and found to have too much swelling and delayed laceration healing to proceed with formal open reduction internal fixation. Decision was made to proceed with revision of external fixation with limited incision open reduction internal fixation of tibial plateau. Patient and his brother are in agreement that we will plan on staged total knee replacement. Risk and benefits of surgery were discussed in depth with patient and informed consent was confirmed. Surgical site was marked. Patient was brought to operating room and placed on the OR table. Patient was given IV sedation and GETA. Patient received IV antibiotics and timeout procedure was performed. Operative leg was prepped with alcohol followed by Hibiclens and draped in the usual sterile fashion. Procedure began with loosening of the external fixator components. The clamps and bars were loosened to allow for manipulation of the fracture. At this point the tibial shaft was manipulated. Next attention was turned to reduction. Traction was applied. Fracture was manipulated. Initially patient was in a slightly valgus alignment. The tibia was reduced into a neutral to slight varus position. Appropriate alignment of the fracture was obtained. Fluoroscopy was used to confirm appropriate alignment of fracture. The external fixator was now tightened to hold reduction. Next attention was turned towards the lateral tibial plateau. A 3 cm incision was made over the anterolateral tibial plateau. A portion of the anterior tibialis was elevated. A window was created and the tibia cortex using an osteotome. Bone tamps were now used to elevate the lateral joint surface. There was severe comminution and displacement of the lateral joint line. Reasonable alignment of the lateral plateau was obtained. Next 45 cc of cancellus bone graft was mixed with a gram of vancomycin. Bone graft was now packed underneath the articular surface to help support the lateral plateau. 4 small percutaneous incisions were made along the lateral tibial plateau. 4 guidepins for the ITS cannulated screws were now placed from lateral to medial. Fluoroscopy was used to confirm appropriate guidepin placement. Cannulated drill was placed over the guidepins. 4 cannulated screws were now placed over the guidepins. Good compression was obtained. Fluoroscopy confirmed reasonable alignment of the articular surface and tibial plateau. Sterile dressings were applied. Patient was awakened and transferred to recovery room in stable condition. The soft tissue was reevaluated. Patient did have swelling around the knee and calf but compartments were soft and compressible with no signs of compartment syndrome. Kiko Rees MD Sep 27, 2017 09:33
--- NOTE | 2017-09-27 09:34 | RADRPT ---
EXAM DATE/TIME: 09/27/2017 08:33 [facility] COMPARISON: TIBIA/FIBULA RIGHT (AP/LAT), August 31, 2017, 16:06. FLUOROSCOPY PORTABLE UP TO 1HR, September 27, 018, 0:00. INDICATIONS : Revision of ex fix; ORIF right tibial plateau. MEDICAL HISTORY : Unobtainable. SURGICAL HISTORY : Unobtainable. ENCOUNTER: Subsequent ACUITY: 1 month PAIN SCORE: Non-responsive. LOCATION: Right knee. FINDINGS: The examination demonstrates 4 partially threaded screws across the tibial plateau. There is minimal depression of the lateral tibial plateau compared to the medial. Again noted is a severely comminuted fracture involving the proximal tibia. There are multiple bone fragments seen along the proximal tib ial plateau as well as multiple fractures within the proximal tibial diaphysis. There at least 2 bone fragments seen along the inferior aspect of the femoral condyles. Exact origin of these is uncertain by this limited plain film. CONCLUSION: 1. Post ORIF of a severely comminuted fracture involving the tibial plateau and proximal tibial diaph ysis. 2. 2 bone fragments evident overlying the joint space of the right knee which appear to arise from th e femoral condyles. Exact origin is uncertain but is limited plain film. Ahmet Rivera MD on September 27, 2017 at 9:28 Board Certified Radiologist. This report was verified electronically.
[2017-09-27 11:55] VITALS: BP 114/60; PULSE 53; RESP 16; TEMP 97.2; O2SAT 98
== END | disposition home or self-care (01) ==
LOC: HSDC 05:40
PROVIDERS: ATTEND Orthopaedic Surgery Orthopaedic Trauma
DX: S82.141B Displaced bicondylar fracture of right tibia, initial encounter for open fracture type I or II (principal); V09.09XA Pedestrian injured in nontraffic accident involving other motor vehicles, initial encounter; Y93.89 Activity, other specified
CPT/HCPCS: 01480; 20693; 27535; 27758; 73560; 76000; C1713; J0690; J1580; J2250; J2270; J3010; J3370; J7050; J7120

== ENCOUNTER → 2017-12-24 | Day surgery (SDC) | payer OTHER ==
[~2017-12-24] VITALS: Ht 182.9 cm; Wt 77.0 kg
[~2017-12-24] MED LIST changes: -*morphine SULFATE 10 MG/ML PERIprocedure ONLY ONE; -B-1250TA PO; +DEXAMETHASONE SOD PHOS 4 MG/ML VIAL IV ONE; -GENTAMICIN SULFATE 80 MG/2 ML VIAL ONE; -HYDR-3583 PO; -KETOROLAC TROMETHAMINE 30 MG/ML (IVP) VIAL IVP SCH; +LIDOCAINE HCL 1% PF 5 ML SYRINGE OTHER ONE; -MIDAZOLAM HCL 2 MG/2 ML VIAL ONE; +ONDANSETRON HCL 4 MG/2 ML VIAL IV ONE; -ONDANSETRON HCL 4 MG/2 ML VIAL IVP PRN; +POLY17S PO; +PROPOFOL 200 MG/20 ML AMP IV ONE; +SACC1CAP3 PO; +SENN8.6T36 PO; +SODI1TAB PO; +SODIUM CHLORIDE 0.9% FLUSH 10 ML FLUSH IV FLUSH PRN; +SODIUM CHLORIDE 0.9% FLUSH 10 ML FLUSH IV FLUSH SCH; +THERTAB17 PO; -VANCOMYCIN HCL 1000 MG VIAL ONE; +VITA100T54 PO; -XARE10TA PO; +ZOFR4TAB PO; -diphenhydrAMINE HCL 25 MG CAP PO PRN
--- NOTE | 2017-12-24 10:48 | PD.OP ---
cc: Kiko Rees MD Operative Report Date of Surgery: Dec 24, 2017 Preoperative Diagnosis: Severely comminuted right distal femur and proximal tibia fractures, retained external fixation, arthrofibrosis right knee Postoperative Diagnosis: Procedure: Removal of external fixation, manipulation under anesthesia of right knee Anesthesia: General Surgeon: Kiko Rees Project Estimator(s): Samson Verma PA-C The surgical procedure was assisted by my physician academic affairs assistant. My P.A. presence was necessary throughout this case for the manipulation and positioning of the surgical extremity. My P.A. was assisting me throughout the duration of this procedure. The skill set of a physician academic affairs assistant was medically necessary to complete this procedure. During the surgical case the certified surgical technician was working at the back table and the physician academic affairs assistant was directly assisting me. Operation and Findings: Plan of activity: Nonweightbearing right leg, passive and active assisted right knee range of motion Louis is well known to me from treatment of open severely comminuted right distal femur and tibial plateau fractures. Informed consent was obtained preoperatively after discussion of the risks and benefits of surgery. Operative site was marked. He was brought operating. He was given IV sedation and general anesthesia. Timeout procedure was performed. IV antibiotics were administered. Procedure began with removal of external fixation. Clamps were loosened. Clamps and bars were now removed from the pins. The pins were now removed from the bone. Pin sites were cleaned with Hibiclens. Next attention was turned to the right knee. Initial range of motion was from 3 to 10. At this point the knee was gently manipulated. Care was taken to avoid fracturing through his healing injuries. With gentle manipulation I was able to achieve range of motion from 2 to 35. Fluoroscopy was used to confirm the fractures were healing. There was no visible motion at fracture sites. Incisions were covered with sterile dressings. Patient was placed into a range of motion hinged brace. He was awakened and transferred to recovery in stable condition. Kiko Rees MD Dec 24, 2017 10:48
[2017-12-24 13:00] VITALS: BP 124/79; PULSE 74; RESP 18; TEMP 97.6; O2SAT 98
--- NOTE | 2017-12-24 15:37 | RADRPT ---
EXAM DATE/TIME: 12/24/2017 10:35 [facility] COMPARISON: KNEE RIGHT LTD (1 OR 2 VWS), September 27, 2017, 8:33. INDICATIONS : Right knee hardware removal. MEDICAL HISTORY : None. SURGICAL HISTORY : None. ENCOUNTER: Initial ACUITY: 1 day PAIN SCORE: Non-responsive. LOCATION: Right Knee. FINDINGS: 2 limited views of the right knee demonstrate screws within the proximal tibia. The severe comminuted fracture of the proximal tibia is again noted. There is persistent medial subluxation of the distal femur in relation to the proximal tibia. CONCLUSION: 2 limited views of the right knee demonstrate screws within the proximal tibia. The severe comminuted fracture of the proximal tibia is again noted. There is persistent medial subluxation of the distal femur in relation to the proximal tibia. Simon Brian MD on December 24, 2017 at 15:32 Board Certified Radiologist. This report was verified electronically.
== END | disposition home or self-care (01) ==
LOC: HSDC 08:39
PROVIDERS: ATTEND Orthopaedic Surgery Orthopaedic Trauma
DX: S82.101D Unspecified fracture of upper end of right tibia, subsequent encounter for closed fracture with routine healing (principal); M24.661 Ankylosis, right knee
CPT/HCPCS: 01380; 20694; 27570; 73560; 76000; J1100; J2405; J3010; J3370; J7050; J7120; L1845

== ENCOUNTER 2018-05-31 09:00 | Inpatient (IN) ==
[2018-05-31] MEDS ORDERED: Chlorhexidine Gluconate 2% 1 Pack (2 Cloths) TOPICAL ONE (09:53)
[2018-05-31] MEDS ORDERED: Metoprolol Tartrate 25 MG Tablet PO ONE (09:53)
[2018-05-31] MEDS ORDERED: Sodium Chlor 0.9% Inj 500 ML IV.SIG SCH (10:00)
[2018-05-31] MEDS ORDERED: Vancomycin Inj 1,000 MG in Sodium Chlor 0.9% Inj 250 ML IV.SIG SCH (10:00)
[2018-05-31] MEDS ORDERED: Sodium Chlor 0.9% Inj 40 ML, Bupivacaine Liposo PF 1.3% Inj 20 ML P-ARTICULR SCH ×2 (10:00)
[2018-05-31] MEDS ORDERED: Tranexamic Acid Inj 840 MG in Sodium Chlor 0.9% Inj 100 ML IV.SIG SCH (10:00)
[2018-05-31] MEDS ORDERED: Chlorhexidine 4% Topical 120 APPLIC/120 ML Bottle TOPICAL SCH (10:00)
[2018-05-31] MEDS ORDERED: ceFAZolin 2 GM/NS 100 ML IV; Q8H IV.SIG SCH ×2 (11:00)
[2018-05-31] MEDS ORDERED: Bupivacaine/Epinephrine Inj 0.25% 50 ML Vial ONE (12:28)
[2018-05-31] MEDS ORDERED: Bupivacaine 0.5% Inj 50 ML MDV Vial ONE (12:37)
[2018-05-31] MEDS ORDERED: Lidocaine PF 1% Inj 5 ML Syringe OTHER ONE (14:30)
[2018-05-31] MEDS ORDERED: Ketorolac Inj 30 MG/ML (IVP) Vial IV.PUSH ONE (14:30)
[2018-05-31] MEDS ORDERED: Tobramycin Sulfate 1,200 MG Vial (for ortho/sterile core) OTHER ONE (16:41)
[2018-05-31] MEDS ORDERED: Post-op Orders (for Pharmacy) OTHER STA (17:33)
[2018-05-31] MEDS ORDERED: Morphine Inj 4 MG/ML Vial IV.PUSH PRN (17:33)
[2018-05-31] MEDS ORDERED: Bisacodyl 10 MG Supp RECTAL PRN (17:33)
[2018-05-31] MEDS ORDERED: Temazepam 15 MG Capsule PO PRN (17:33)
--- NOTE | 2018-05-31 17:57 | P.OP ---
- Preoperative Diagnosis (1) Osteoarthritis of right knee (2) Osteoarthritis of right knee - Postoperative Diagnosis (1) Closed fracture of right tibial plateau with malunion Comment: Retained hardware right proximal tibia (2) Osteoarthritis of right knee Date of procedure: 05/31/18 Procedure: Complex conversion of previous surgery to total knee replacement arthroplasty. Osteotomy of right proximal tibia with internal fixation Anesthesia: NATALIO Surgeon: Alex Barton MD Hose Operator: COLIN Melo Operation and Findings: EBL: 300 cc INDICATION: This patient presents with severe posttraumatic osteoarthritis of the right knee. He sustained a comminuted open tibial plateau fracture managed by 1 of my partners with an external fixator and limited fixation. The patient had range of motion of extension -15 flexion 60. He has severe deformity with evidence of a fracture of the distal femur in the region of the medial femoral condyle and a highly comminuted proximal tibial shaft tibial plateau and metaphyseal fracture. The fixation has been removed. The fractures have healed. He now presents for conversion to total knee replacement arthroplasty. The patient now presents for surgical treatment. NOTE: Nicole Melo was present for the entire surgical procedure as my nurse first assist. In my medical opinion that individual's skill and care was necessary for proper management of this patient. TOURNIQUET TIME: 122 minutes COMPANY: [employer] FEMUR: Attune, size 7, posterior stabilized TIBIA: Attune, size 6, fixed-bearing with 60 mm stem, 6 mm offset, 12 mm diameter PATELLA:41 mm POLYETHYLENE INSERT: 12, posterior stabilized mm PROCEDURE: This patient was brought the operating room and anesthetized in the supine position. The patient was positioned supine on the table. The tourniquet was placed about the thigh, and the leg was scrubbed with alcohol followed by Hibiclens followed by ChloraPrep and draped sterilely. A timeout was done, and antibiotics were given. After exsanguination the tourniquet was inflated to 250 mmHg. An anterior incision was made and a median parapatellar arthrotomy was performed. The patella was released laterally and subluxed allowing freehand cut of the patella which was then sized. A metal cap was placed over the exposed patellar surface for protection. There were severe contractures. There was a significant deformity of the medial femur and proximal tibia. A preliminary cut in the tibia was performed. We were able to flex the knee approximately 70. A ems helicopter pilot hole was placed in the distal femur allowing a 5 valgus cut removing 11 mm from the distal femur. We were not able to flex the knee sufficiently. We needed to consider a tibial tubercle osteotomy despite having extensive releases laterally and medially. The attention was directed to the tibia. An osteotomy of approximately 11 cm of the proximal tibia was performed. This was carefully hinged laterally and released. We were then able to flex the knee to over 115. The rest of the femur was cut using a #7 size. A minimal notching of the femur was necessary because the anatomic variation. The box cut of the femur was made in a complete posterior release was necessary. A medial release and posterior medial corner release was necessary as well because of the contractures. A ems helicopter pilot hole was placed in the tibia. This was reamed up to 12 mm anticipating a 60 mm stem. This was then cut and fashioned for a 12 mm insert on a #6 tibial component. Trial reduction showed satisfactory balancing in flexion and extension. Chemistry Department Chair holes were placed within the tibial tubercle. #2 and #5 fiber wires were placed around this. The bony surfaces were prepared. On the back table methylmethacrylate was mixed with vancomycin and tobramycin. The tibial, femoral and patellar components were cemented. The tourniquet was let down. Hemostasis was controlled. As the stem of the tibia was being placed, this was placed through the loop of the fiber wires allowing the osteotomy to be secured fixation was felt to be quite satisfactory. With the osteotomy secured, we were able to flex the knee to approximately 80 before there was felt to be undue tension on the osteotomy. This is stable to varus valgus stress. Overall alignment looks satisfactory. A drain was brought through a separate stab incision. The arthrotomy was repaired with interrupted #1 Vicryl suture, subcutaneous tissue 2-0 Vicryl suture and skin with metallic remy A sterile dressing was applied. Sponge counts, needle counts and instrument counts were all correct. The patient tolerated procedure well and was taken to recovery in satisfactory condition. FINDINGS: There was a severe deformity of the femur and proximal tibia. This is a very difficult case which required over 2 hours under tourniquet time an additional hour afterwards for final reconstruction, fixation of the osteotomy and closure. This is felt to be excessive for even a revision total knee replacement. There was no complication that was appreciated.
[2018-05-31] MEDS ORDERED: fentaNYL Citrate Inj 100 MCG/2 ML Ampul ONE (18:14)
--- NOTE | 2018-05-31 18:32 | XR ---
EXAM DATE: 05/31/2018 6:25 PM EDT AGE/SEX: 62 years / Male INDICATIONS: Post op right knee surgery. CLINICAL DATA: This is the patient's initial encounter. Patient reports that signs and symptoms have been present for 1 day and indicates a pain score of Nonresponsive. MEDICAL/SURGICAL HISTORY: Non-responsive. Non-responsive. [place] [facility] [place] (1 OR 2 VWS[place] 12/24/2017. . FINDINGS: Postoperative left total knee replacement. Drain present in soft tissues. Skin remy present anteri breezy. Alignment within normal limits. Residual deformity proximal tibia. CONCLUSION: Postoperative right knee replacement as above. Electronically signed by: Billy Brunner MD 05/31/2018 6:31 PM EDT
[2018-05-31] MEDS ORDERED: *Ondansetron Inj 4 MG/2 ML Vial PERIprocedural Use ONLY ONE (18:40)
[2018-05-31] MEDS: Multivitamin/Minerals Therapeutic Tablet PO SCH (21:05)
[2018-05-31] MEDS: Senna/Docusate Sodium 8.6/50 MG Tablet PO SCH (21:39)
[2018-05-31 23:00] LABS: Hemoglobin 12.9 gm/dL (13.0-17.0)
[2018-06-01 05:29] LABS: Hemoglobin 11.1 gm/dL (13.0-17.0)
[2018-06-01] MEDS: Senna/Docusate Sodium 8.6/50 MG Tablet PO SCH ×3 (10:16→20:36)
[2018-06-01] MEDS: Multivitamin/Minerals Therapeutic Tablet PO SCH ×2 (10:16→20:33)
--- NOTE | 2018-06-01 22:03 | P.PNOP ---
Subjective Interval history: Pt seen and evaluated at 1300 today. Doing well in regards to pain control. Had increased output involving his drain last night (1200cc over 12 hr shift). He has been wearing his splint. Apparently the ROM brace that was brought from home is quite dirty and could not be used. He denies any CP or SOB. Physical Exam Vital signs: Vital Signs 05/31/18 23:33 06/01/18 03:03 06/01/18 05:22 Temperature 97.8 F 98.0 F Pulse Rate 91 H 74 Respiratory Rate 18 18 Blood Pressure 126/88 107/59 L Pulse Oximetry 96 98 06/01/18 08:00 06/01/18 12:00 06/01/18 16:00 Temperature 98.7 F 97.4 F L 97.8 F Pulse Rate 77 75 91 H Respiratory Rate 18 Blood Pressure 115/58 L 88/54 L 107/67 Pulse Oximetry 99 100 96 06/01/18 19:04 Temperature 97.8 F Pulse Rate 93 H Respiratory Rate 18 Blood Pressure 95/60 L Pulse Oximetry 97 Intake & Output 06/01/18 06/01/18 06/02/18 06:59 18:59 06:59 Intake Total 680 / 680 1000 / 1000 Output Total 3000 / 3000 200 / 200 Balance -2320 / -2320 800 / 800 Weight 84 kg Intake: IV 200 / 200 1000 / 1000 LR 1000 mL Inj 1,000 ML @ 80 1000 / 1000 mls/hr IV.CONT .[id number] TARYN Rx# :[id number] Ancef Inj 1,000 MG In NS Inj 200 / 200 100 ML @ 200 mls/hr IV.SIG Q6H TARYN Rx#:[id number] Oral 480 / 480 Output: Urine 1800 / 1800 Wound Drainage 1200 / 1200 200 / 200 # 1 Right Knee Hemovac 1200 / 1200 200 / 200 Other: Date of Last Bowel Movement 05/30/18 05/30/18 # Bowel Movements 0 Narrative: Sitting up in bed manager leadership development / friend present in the room NAD RLE CKS intact, Drain lateral knee, Dressing shows only mild SS drainage, Mild swelling of the knee, no erythema +motor at distal, +sens, +nvi Neg homans - Constitutional no acute distress Results - Labs CBC & Chem 7: 06/01/18 04:11 Laboratory Results - last 24 hr 05/31/18 06/01/18 22:46 04:11 Hgb 12.9 L 11.1 L Hct 39.0 33.0 L - Procedures Complex Right total knee arthroplasty, tibial osteotomy Assessment and Plan - Ortho Post Op Day # 1 - Assessment and Plan pod#1 s/p COmplex right TKA, tibial osteotomy Pain fairly well controlled. PO pain meds as needed. PT - TTWBing RLE. CKS when in bed. We will fit him with a ROM brace today to be worn retention representative (ok to remove for hygiene), locked out 0-80 degrees flexion. CPM 1-2 times daily, 0-80 flexion. Ice bid. Ok to use ice machine/cuff. Hold dressing changes unless saturated. Continue drain today. Will reassess tomorrow. ASA 81mg bid. D/C planning, SNF wednesday if medically stable.
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
[2018-06-02] MEDS: Senna/Docusate Sodium 8.6/50 MG Tablet PO SCH ×2 (09:02→20:32)
[2018-06-02] MEDS: Multivitamin/Minerals Therapeutic Tablet PO SCH ×2 (09:03→20:32)
--- NOTE | 2018-06-02 12:55 | P.PNOP ---
Subjective Interval history: Still doing well. NO new pain complaints. He has yet to be fit with his new ROM brace. Drain intact. Questions about rehab and discharge. Physical Exam Vital signs: Vital Signs 06/01/18 16:00 06/01/18 19:04 06/01/18 23:14 Temperature 97.8 F 97.8 F 98.3 F Pulse Rate 91 H 93 H 90 Respiratory Rate 18 18 18 Blood Pressure 107/67 95/60 L 102/51 L Pulse Oximetry 96 97 95 06/02/18 03:41 06/02/18 08:00 06/02/18 12:00 Temperature 97.8 F 97.4 F L 97.6 F Pulse Rate 92 H 106 H 95 H Respiratory Rate 18 18 18 Blood Pressure 110/55 L 143/79 H 130/74 Pulse Oximetry 97 97 99 Intake & Output 06/01/18 06/02/18 06/02/18 18:59 06:59 18:59 Intake Total 1000 / 1000 2580 / 2580 Output Total 200 / 200 60 / 60 Balance 800 / 800 2520 / 2520 Weight 86.6 kg Intake: IV 1000 / 1000 2100 / 2100 LR 1000 mL Inj 1,000 ML @ 80 1000 / 1000 1000 / 1000 mls/hr IV.CONT .[id number] TARYN Rx# :[id number] Oral 480 / 480 Output: Wound Drainage 200 / 200 60 / 60 # 1 Right Knee Hemovac 200 / 200 60 / 60 Other: # Voids 1 Date of Last Bowel Movement 05/30/18 05/31/18 # Bowel Movements 0 Narrative: Sitting up in bed NAD RLE CKS intact, Drain lateral knee, Dressing shows only mild SS drainage, Mild swelling of the knee, no erythema +motor at distal, +sens, +nvi Neg homans - Constitutional no acute distress Results - Labs CBC & Chem 7: 06/01/18 04:11 - Procedures Complex Right total knee arthroplasty, tibial osteotomy Assessment and Plan - Ortho Post Op Day # 2 - Problem List (1) Closed fracture of right tibial plateau with malunion Code(s): S82.141P - Displaced bicondylar fracture of right tibia, subsequent encounter for closed fracture with malunion Status: Acute (2) Osteoarthritis of right knee Code(s): M17.11 - Unilateral primary osteoarthritis, right knee Status: Acute - Assessment and Plan pod#2 s/p COmplex right TKA, tibial osteotomy Pain fairly well controlled. PO pain meds as needed. PT - TTWBing RLE. Fit with ROM brace today, locked out 0-80 flexion. TO be worn daytime caregiver. Ok to remove for hygiene only. CPM 1-2 times daily, 0-80 flexion. Ice bid. Ok to use ice machine/cuff. Hold dressing changes unless saturated. Remove drain today. Ok to redress drain site. ASA 81mg bid. D/C planning, SNF wednesday if medically stable.
[2018-06-02 15:47] LABS: Hematocrit 23.7 % (39.0-51.0)
[2018-06-03 07:02] LABS: Hematocrit 23.6 % (39.0-51.0)
--- NOTE | 2018-06-03 08:06 | P.PNOP ---
Subjective Interval history: Doing well. Having [id number]-[id number] pain. Night of surgery, CPM was held at 90. Physical Exam Vital signs: Vital Signs 06/02/18 12:00 06/02/18 16:00 06/02/18 20:00 Temperature 97.6 F 98.2 F 98.2 F Pulse Rate 95 H 100 H 95 H Respiratory Rate 18 16 18 Blood Pressure 130/74 135/79 126/66 Pulse Oximetry 99 99 97 06/03/18 00:00 Temperature 97.9 F Pulse Rate 91 H Respiratory Rate 18 Blood Pressure 126/66 Pulse Oximetry 96 Intake & Output 06/02/18 06/03/18 06/03/18 18:59 06:59 18:59 Output Total 1130 / 1130 2450 / 2450 Balance -1130 / -1130 -2450 / -2450 Weight 86.8 kg Output: Urine 1000 / 1000 2450 / 2450 Wound Drainage 130 / 130 # 1 Right Knee Hemovac 130 / 130 Other: # Voids 1 Date of Last Bowel Movement 05/31/18 Narrative: Sitting up in bed NAD RLE CKS intact, Drain lateral knee, Dressing shows only mild SS drainage, Mild swelling of the knee, no erythema +motor at distal, +sens, +nvi Neg homans Results - Labs CBC & Chem 7: 06/03/18 06:11 Laboratory Results - last 24 hr 06/02/18 06/03/18 15:14 06:11 Hgb 8.0 L D 8.0 L Hct 23.7 L 23.6 L - Procedures Complex Right total knee arthroplasty, tibial osteotomy Assessment and Plan - Problem List (1) Closed fracture of right tibial plateau with malunion Code(s): S82.141P - Displaced bicondylar fracture of right tibia, subsequent encounter for closed fracture with malunion Status: Acute (2) Osteoarthritis of right knee Code(s): M17.11 - Unilateral primary osteoarthritis, right knee Status: Acute - Assessment and Plan pod#3 s/p COmplex right TKA, tibial osteotomy Will re-x-ray right knee due to range of motion greater than 80. If satisfactory, [facility]. Toe-touch weightbearing. [place] for pain. No dressing change unless saturated. Aspirin for anticoagulation. Hemoglobin 8.0. Will not transfuse as he is not symptomatic. We will review x-ray. If satisfactory, discharge to SNF today
[2018-06-03] MEDS: Multivitamin/Minerals Therapeutic Tablet PO SCH (09:26)
[2018-06-03] MEDS: Senna/Docusate Sodium 8.6/50 MG Tablet PO SCH (09:26)
--- NOTE | 2018-06-03 10:50 | XR ---
EXAM DATE: 06/03/2018 10:24 AM EDT AGE/SEX: 62 years / Male INDICATIONS: Post op osteotomy, right leg. CLINICAL DATA: This is the patient's subsequent encounter. Patient reports that signs and symptoms h ave been present for 3 days and indicates a pain score of 3/10. MEDICAL/SURGICAL HISTORY: None. None. COMPARISON: [facility] – [place], KNEE RIGHT LTD (1 OR 2 VW), 08/22/2017. . FINDINGS: Status post osteotomy in the arthroplasty of the right knee. Prosthesis is well-seated in brace. Alig nment is anatomic across the knee. Residual deformity from previous trauma.. The bones are osteoporotic. CONCLUSION: Alignment as above. Electronically signed by: Omar Rivera MD 06/03/2018 10:48 AM EDT
[2018-06-03 12:39] VITALS: BP 128/60; PULSE 88; RESP 17; TEMP 97.9; O2SAT 96
== END 2018-06-03 15:14 ==
LOC: HSDI 09:24 → N06 19:15
PROVIDERS: ADMIT Orthopaedic Surgery Orthopaedic Surgery of the Spine; ATTEND Orthopaedic Surgery Orthopaedic Surgery of the Spine